=== PATIENT | male | born 1955 | race Caucasian/White ===

== ENCOUNTER 2016-11-02 10:42 | Emergency (ER) | payer MEDICARE ==
[2016-11-02 11:44] VITALS: BP 115/64
--- NOTE | 2016-11-02 12:23 | UC ---
Respiratory Complaint HPI - HPI Summary HPI Summary: The patient comes in today for: 1. Sinus pressure, bilateral otalgia: Onset: 1 week. Palliative/provocative: Nothing helps or makes it worse. Quality: Pressure. Region: Above and below the eyes. Severity: 8/10 though he appears more like 4/10 Time: Constant. Associated symptoms: Fevers: None. Rhinitis: Yellow. Cough: Productive of yellow material. Chest pain: None. Dyspnea/wheezing: None. * - History of Current Complaint Chief Complaint: UCRespiratory Stated Complaint: SINUS COMPLAINT Time Seen by Provider: 11/02/16 12:18 Hx Obtained From: Patient - Allergies/Home Medications Allergies/Adverse Reactions: Allergies Allergy/AdvReac Type Severity Reaction Status Date / Time Codeine Allergy adverse Verified 11/02/16 11:44 reaction Home Medications: Home Medications Lubiprostone (NF) [Amitiza (NF)] 8 mcg PO BID 11/02/16 [History Confirmed ] PMH/Surg Hx/FS Hx/Imm Hx Previously Healthy: No - Chronic low back pain. Endocrine History Of: Denies: Diabetes, Thyroid Disease, Hyperthyroidism, Hypothyroidism, Dyslipidemia Cardiovascular History Of: Denies: Cardiac Disorders, Hypertension, Pacemaker/ICD, Myocardial Infarction , Congestive Heart Failure, Atrial Fibrillation, Deep Vein Thrombosis, Bleeding Disorders Respiratory History Of: Reports: Asthma - He is not on any inhalers ("I can't afford them." Denies: COPD GI/ History Of: Denies: Gastroesophageal Reflux, Ulcer, Gastrointestinal Bleed, Gall Bladder Disease, Kidney Stones, Diverticulitis, Renal Disease, Urosepsis Neurological History Of: Denies: TIA, CVA, Dementia, Seizures, Migraine Psychological History Of: Denies: Anxiety, Depression, Bipolar Disorder, Schizophrenia, Post Traumatic Stress Disorder Cancer History Of: Denies: Lung Cancer, Colorectal Cancer, Breast Cancer, Prostate Cancer, Cervical Cancer Other History Of: Negative For: HIV, Hepatitis B, Hepatitis C, Anticoagulant Therapy - Surgical History Surgical History: Yes Surgery Procedure, Year, and Place: back surg 2006 - Family History Known Family History: Positive: Cardiac Disease, Hypertension, Diabetes Family History: NON CONTRIBUTORY - Social History Occupation: Unemployed Alcohol Use: None 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 Substance Use Type: None Smoking Status (MU): Heavy Every Day Tobacco Smoker Type: Cigarettes Amount Used/How Often: 1.5 ppd Length of Time of Smoking/Using Tobacco: started age 8 - Immunization History Most Recent Influenza Vaccination: none Review of Systems Constitutional: Negative Skin: Negative Eyes: Negative ENT: Nasal Discharge Respiratory: Cough Cardiovascular: Negative Gastrointestinal: Negative Genitourinary: Negative All Other Systems Reviewed And Are Negative: Yes Physical Exam Triage Information Reviewed: Yes Appearance: Well-Appearing, No Pain Distress, Well-Nourished Vital Signs: Initial Vital Signs Temp 99.0 F 11/02/16 11:41 Pulse 68 11/02/16 11:41 Resp 14 11/02/16 11:41 BP 115/64 11/02/16 11:41 Pulse Ox 98 11/02/16 11:41 Vital Signs Reviewed: Yes Eyes: Positive: Conjunctiva Clear. Negative: Discharge ENT: Positive: Hearing grossly normal, Other: - Positive sinus pressure (frontal , maxillary). Negative: Pharyngeal erythema, Nasal congestion, Nasal drainage, TM bulging, TM dull, TM red, Tonsillar swelling, Tonsillar exudate Dental: Negative: Gross Decay/Caries @, Dental Fracture @ Neck: Positive: Supple, Nontender, No Lymphadenopathy. Negative: Nuchal Rigidity Respiratory: Positive: Chest non-tender, No respiratory distress, No accessory muscle use, Wheezing - Few scattered wheezing. Good inspiration/expiration cycle.. Negative: Crackles, Rhonchi Cardiovascular: Positive: RRR, No Murmur Abdomen Description: Positive: Nontender, No Organomegaly, Soft. Negative: Distended, Guarding, Peritoneal Signs Musculoskeletal: Positive: Strength Intact, ROM Intact, No Edema Psychological: Positive: Normal Response To Family, Age Appropriate Behavior. Negative: Consolable Skin: Negative: rashes, breakdown UC Diagnostic Evaluation - Laboratory O2 Sat by Pulse Oximetry: 98 Respiratory Course/Dx - Differential Dx/Diagnosis Differential Diagnosis/HQI/PQRI: Bronchitis, Sinusitis Provider Diagnoses: Sinusitis Discharge - Discharge Plan Condition: Stable Disposition: HOME Patient Education Materials: Sinusitis (ED) Referrals: Lenny Beckett MD [Primary Care Provider] - 1 Week (Please see your primary care provider in about a week to see how well you are doing. If you get worse, please be seen sooner.)
== END 2016-11-02 12:38 | disposition home or self-care (01) ==
LOC: UCCORT 10:42
DX: J32.0 Chronic maxillary sinusitis (principal); H92.03 Otalgia, bilateral; J45.909 Unspecified asthma, uncomplicated; Z88.5 Allergy status to narcotic agent; F17.210 Nicotine dependence, cigarettes, uncomplicated
CPT/HCPCS: 99212; G0463

== ENCOUNTER 2017-01-07 17:54 | Emergency (ER) | payer MEDICARE ==
[2017-01-07 18:35] VITALS: BP 134/89
--- NOTE | 2017-01-07 19:08 | UC ---
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 center rep - History of Current Complaint Chief Complaint: UCUpperExtremity Stated Complaint: RIGHT ARM INJURY-FALL Time Seen by Provider: 01/07/17 19:01 Hx Obtained From: Patient ?: No Onset/Duration: Sudden Onset, Lasting Hours Severity Initially: Severe Severity Currently: Severe Location Of Pain: Is Discrete @ - mid right forearm Aggravating Factor(s): Movement, Lifting Alleviating Factor(s): Nothing Associated Signs And Symptoms: Positive: Swelling, Weakness - Allergies/Home Medications Allergies/Adverse Reactions: Allergies Allergy/AdvReac Type Severity Reaction Status Date / Time Codeine Allergy adverse Verified 01/07/17 18:36 reaction PMH/Surg Hx/FS Hx/Imm Hx Previously Healthy: Yes Endocrine History Of: Denies: Diabetes, Thyroid Disease, Hyperthyroidism, Hypothyroidism, Dyslipidemia Cardiovascular History Of: Denies: Cardiac Disorders, Hypertension, Pacemaker/ICD, Myocardial Infarction , Congestive Heart Failure, Atrial Fibrillation, Deep Vein Thrombosis, Bleeding Disorders Respiratory History Of: Reports: Asthma - He is not on any inhalers ("I can't afford them." Denies: COPD GI/ History Of: Denies: Gastroesophageal Reflux, Ulcer, Gastrointestinal Bleed, Gall Bladder Disease, Kidney Stones, Diverticulitis, Renal Disease, Urosepsis Neurological History Of: Denies: TIA, CVA, Dementia, Seizures, Migraine Psychological History Of: Denies: Anxiety, Depression, Bipolar Disorder, Schizophrenia, Post Traumatic Stress Disorder Cancer History Of: Denies: Lung Cancer, Colorectal Cancer, Breast Cancer, Prostate Cancer, Cervical Cancer Other History Of: Negative For: HIV, Hepatitis B, Hepatitis C, Anticoagulant Therapy - Surgical History Surgical History: Yes Surgery Procedure, Year, and Place: back surg 2006 - Family History Known Family History: Positive: Cardiac Disease, Hypertension, Diabetes Family History: NON CONTRIBUTORY - Social History Alcohol Use: None 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 Substance Use Type: None Smoking Status (MU): Heavy Every Day Tobacco Smoker Type: Cigarettes Amount Used/How Often: 1.5 ppd Length of Time of Smoking/Using Tobacco: started age 8 - Immunization History Most Recent Influenza Vaccination: none Review of Systems Constitutional: Negative Skin: Other - abraision Eyes: Negative ENT: Negative Respiratory: Negative Cardiovascular: Negative Gastrointestinal: Negative Genitourinary: Negative Motor: Negative Neurovascular: Negative Musculoskeletal: Decreased ROM, Edema Neurological: Negative Psychological: Negative All Other Systems Reviewed And Are Negative: Yes Physical Exam Triage Information Reviewed: Yes Appearance: Well-Nourished, Ill-Appearing, Pain Distress Vital Signs: Initial Vital Signs Temp 98.5 F 01/07/17 18:30 Pulse 74 01/07/17 18:30 Resp 16 01/07/17 18:30 BP 134/89 01/07/17 18:30 Pulse Ox 99 01/07/17 18:30 Vital Signs Reviewed: Yes Eye Exam: Normal Eyes: Positive: Conjunctiva Clear ENT Exam: Normal ENT: Positive: Hearing grossly normal, Pharynx normal, TMs normal Dental Exam: Normal Neck exam: Normal Neck: Positive: Supple, Nontender, No Lymphadenopathy Respiratory Exam: Normal Respiratory: Positive: Chest non-tender, Lungs clear, Normal breath sounds Cardiovascular Exam: Normal Cardiovascular: Positive: RRR, No Murmur, Pulses Normal Abdominal Exam: Normal Abdomen Description: Positive: Nontender, No Organomegaly, Soft Bowel Sounds: Positive: Present Musculoskeletal Exam: Normal Musculoskeletal: Positive: Strength Intact, ROM Intact, No Edema Neurological Exam: Normal Neurological: Positive: Alert, Muscle Tone Normal Psychological Exam: Normal Skin Exam: Normal Upper Extremity Course/Dx - Course Course Of Treatment: hx obtained, exam performed, meds reviewed, xray obtained. wound cleansed, bacitractin applied, talya wrap for swelling reduction - Differential Dx/Diagnosis Differential Diagnosis/HQI/PQRI: Contusion, Fracture (Closed), Strain, Sprain Provider Diagnoses: forearm contusion Discharge - Discharge Plan Condition: Stable Disposition: HOME Patient Education Materials: Contusion in Adults (ED) Additional Instructions: your arm is not broken, continue to ice and use talya wrap for swelling control.
--- NOTE | 2017-01-07 19:24 | RAD ---
INDICATION: Right forearm injury. TECHNIQUE: 2 views of the right forearm were obtained. FINDINGS: The bones are in normal alignment. No fracture is seen. IMPRESSION: NO EVIDENCE FOR FRACTURE.
== END 2017-01-07 19:40 | disposition home or self-care (01) ==
LOC: UCCORT 17:54
DX: S50.11XA Contusion of right forearm, initial encounter (principal); S50.811A Abrasion of right forearm, initial encounter; W19.XXXA Unspecified fall, initial encounter; Y93.9 Activity, unspecified; Y92.9 Unspecified place or not applicable; J45.909 Unspecified asthma, uncomplicated; Z88.5 Allergy status to narcotic agent; F17.210 Nicotine dependence, cigarettes, uncomplicated
CPT/HCPCS: 99212; G0463

== ENCOUNTER 2017-10-25 18:07 | Emergency (ER) | payer BC, MEDICARE ==
[2017-10-25 18:27] VITALS: BP 124/64
--- NOTE | 2017-10-25 19:03 | RAD ---
Indication: Cough, smoker. She by a horse. 3 views of the right ribs as well as dual energy PA view of the chest demonstrates no fracture of the right ribs. No pneumothorax is noted. No mediastinal shift is noted. Heart is of normal size and configuration. Lung crystal demonstrate no pleural fluid, pneumonia or pneumothorax. Calcified granuloma in the right midlung zone is noted. IMPRESSION: No rib fractures are noted. No pneumothorax is noted.
--- NOTE | 2017-10-25 19:55 | UC ---
Truncal Trauma HPI - HPI Summary HPI Summary: Pt c/o of being kicked by horse on 10/24/17 in right lower lateral ribs. Pt denies hematuria, bruising, or swelling to area. - History Of Current Complaint Chief Complaint: UCChestPain Stated Complaint: KICKED BY HORSE RT SIDE RIBS Time Seen by Provider: 10/25/17 19:36 Hx Obtained From: Patient Onset/Duration: Sudden Onset, Still Present Onset Of Pain: Immediate Severity Initially: Moderate Severity Currently: Moderate Pain Intensity: 10 Mechanism Of Injury: Direct Blow - horse kick Aggravating Factor(s): Movement, Deep Breathing, Cough Alleviating factor(s): Rest Associated Signs And Symptoms: Positive: Negative - Allergies/Home Medications Allergies/Adverse Reactions: Allergies Allergy/AdvReac Type Severity Reaction Status Date / Time Codeine Allergy adverse Verified 10/25/17 18:22 reaction Dust Mite Extract Allergy "I choke Verified 10/25/17 18:22 right up." Molds & Smuts Allergy "I choke Verified 10/25/17 18:22 right up." Home Medications: Home Medications Gabapentin CAP(*) [Neurontin 300 CAP(*)] 600 mg PO TID 10/25/17 [History Confirmed 10/25/17] Morphine TAB Extended Rel(*) [Ms Contin(*)] 15 mg PO BID 10/25/17 [History Confirmed 10/25/17] oxyCODONE ORAL.SOLN* [Oxycodone ORAL.SOLN 5 mg/5 ml *] 0.25 - 0.5 ml PO Q6H PRN 10/25/17 [History Confirmed 10/25/17] PMH/Surg Hx/FS Hx/Imm Hx Previously Healthy: Yes Other History Of: Negative For: HIV, Hepatitis B, Hepatitis C, Anticoagulant Therapy - Surgical History Surgical History: Yes Surgery Procedure, Year, and Place: L3L4L5 Fusion (Rods and Screws), 2007, [place] - Family History Known Family History: Positive: Cardiac Disease, Hypertension, Diabetes Family History: NON CONTRIBUTORY - Social History Occupation: Employed Full-time Lives: With Family Alcohol Use: None 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 Substance Use Type: None Smoking Status (MU): Heavy Every Day Tobacco Smoker Type: Cigarettes Amount Used/How Often: 1 PPD Length of Time of Smoking/Using Tobacco: Since Age 8 Have You Smoked in the Last Year: Yes - Immunization History Most Recent Influenza Vaccination: none Vaccination Up to Date: No Review of Systems Constitutional: Negative Skin: Negative Eyes: Negative ENT: Negative Respiratory: Negative Cardiovascular: Negative Gastrointestinal: Negative Genitourinary: Negative Motor: Decreased ROM - right side chest/ribs Neurovascular: Negative Musculoskeletal: Arthralgia, Decreased ROM - right robinson eribs/chest., Myalgia Neurological: Negative Psychological: Negative Is Patient Immunocompromised?: No All Other Systems Reviewed And Are Negative: Yes Physical Exam Triage Information Reviewed: Yes Appearance: Pain Distress, Thin Vital Signs: Initial Vital Signs Temp 97.6 F 10/25/17 18:18 Pulse 70 10/25/17 18:18 Resp 20 10/25/17 18:18 BP 124/64 10/25/17 18:18 Pulse Ox 99 10/25/17 18:18 Vital Signs Reviewed: Yes Eye Exam: Normal ENT Exam: Normal Neck exam: Normal Respiratory Exam: Normal Cardiovascular Exam: Normal Musculoskeletal Exam: Other Musculoskeletal: Positive: ROM Limited @ - right side rib pain, reproducible with palaption. no organmegaly, no bruising noted, Neurological Exam: Normal Psychological Exam: Normal Skin Exam: Normal Diagnostics - Radiology No standard instances Radiology Interpretation Completed By: Radiologist - 3 views of the right ribs as well as dual energy PA view of the chest demonstrates no fracture of the right ribs. No pneumothorax is noted. No mediastinal shift is noted. Heart is of normal size and configuration. Lung crystal demonstrate no pleural fluid, pneumonia or pneumothorax. Calcified granuloma in the right midlung zone is noted. IMPRESSION: No rib fractures are noted. No pneumothorax is noted. Truncal Trauma Course/Dx - Differential Dx/Diagnosis Differential Diagnosis/HQI/PQRI: Chest Wall Contusion, Rib Fracture Provider Diagnoses: right rib contusion Discharge - Discharge Plan Condition: Stable Disposition: HOME Patient Education Materials: Rib Contusion (ED) Referrals: Lenny Beckett MD [Primary Care Provider] - If Needed Additional Instructions: Please follow up with your PCP or return to clinic as needed.
== END 2017-10-25 20:09 | disposition home or self-care (01) ==
LOC: UCCORT 18:07
DX: S20.211A Contusion of right front wall of thorax, initial encounter (principal); W55.12XA Struck by horse, initial encounter; Y92.9 Unspecified place or not applicable; F17.210 Nicotine dependence, cigarettes, uncomplicated
CPT/HCPCS: 81003; 99212; G0463

== ENCOUNTER 2018-04-09 19:15 | Emergency (ER) | payer MEDICARE ==
[2018-04-09 19:31] VITALS: BP 129/65
--- NOTE | 2018-04-09 20:12 | RAD ---
INDICATION: LEFT elbow pain and swelling over the olecranon process since last night. COMPARISON: No relevant prior exams available on the [facility] PACS for comparison. TECHNIQUE: AP, lateral, and oblique views LEFT elbow. REPORT: Soft tissue swelling over the olecranon process. No conspicuous foreign body or subcutaneous emphysema. Negative for joint effusion, fracture, or malalignment. Mild osteophytosis at the proximal radial ulnar articulation. IMPRESSION: #. Correlate for potential dorsal cellulitis or olecranon bursitis.
--- NOTE | 2018-04-09 20:20 | UC ---
Upper Extremity HPI - History of Current Complaint Chief Complaint: UCUpperExtremity Stated Complaint: ELBOW (L) CONCERN Time Seen by Provider: 04/09/18 19:43 Onset/Duration: Lasting Days Severity Initially: Moderate Severity Currently: Moderate Pain Intensity: 8 Aggravating Factor(s): Movement Alleviating Factor(s): Nothing - Allergies/Home Medications Allergies/Adverse Reactions: Allergies Allergy/AdvReac Type Severity Reaction Status Date / Time codeine Allergy Unknown Verified 04/09/18 19:34 Reaction Details mold Allergy Difficulty Verified 04/09/18 19:34 Breathing/Wheezing DUST MITES Allergy Difficulty Uncoded 04/09/18 19:34 Breathing/Wheezing Home Medications: Home Medications Duloxetine HCl [Cymbalta] 20 mg PO BID 04/09/18 [History Confirmed 04/09/18] Piroxicam [Feldene] 20 mg PO DAILY 04/09/18 [History Confirmed 04/09/18] PMH/Surg Hx/FS Hx/Imm Hx Previously Healthy: Yes Other History Of: Negative For: HIV, Hepatitis B, Hepatitis C, Anticoagulant Therapy - Surgical History Surgical History: Yes Surgery Procedure, Year, and Place: L3L4L5 Fusion (Rods and Screws), 2007, [place]. 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 Substance Use Type: None Smoking Status (MU): Heavy Every Day Tobacco Smoker Type: Cigarettes Amount Used/How Often: 1 PPD Length of Time of Smoking/Using Tobacco: Since Age 8 Have You Smoked in the Last Year: Yes - Immunization History Most Recent Influenza Vaccination: none Vaccination Up to Date: No Review of Systems Constitutional: Negative Skin: Negative Eyes: Negative ENT: Negative Respiratory: Negative Cardiovascular: Negative Gastrointestinal: Negative Genitourinary: Negative Motor: Negative Neurovascular: Negative Musculoskeletal: Other: - tenderness left elbow All Other Systems Reviewed And Are Negative: Yes Physical Exam Triage Information Reviewed: Yes Appearance: Thin Vital Signs: Initial Vital Signs Temp 36.9 C 04/09/18 19:26 Pulse 75 04/09/18 19:26 Resp 20 04/09/18 19:26 BP 129/65 04/09/18 19:26 Pulse Ox 97 04/09/18 19:26 Vital Signs Reviewed: Yes Eye Exam: Normal Eyes: Positive: Conjunctiva Clear ENT Exam: Normal ENT: Positive: Normal ENT inspection Dental Exam: Normal Neck exam: Normal Respiratory Exam: Normal Cardiovascular Exam: Normal Abdominal Exam: Normal Musculoskeletal Exam: Normal Neurological Exam: Normal Psychological Exam: Normal Skin Exam: Normal Upper Extremity Course/Dx - Course Course Of Treatment: left olecranon bursa aspirated 8cc serosanguinous fluid - Differential Dx/Diagnosis Provider Diagnoses: olecranon bursitis Discharge - Sign-Out/Discharge Documenting (check all that apply): Patient Departure - Discharge Plan Condition: Good Disposition: HOME Patient Education Materials: Elbow Bursitis (ED) Referrals: Lenny Beckett MD [Primary Care Provider] - - Billing Disposition and Condition Condition: GOOD Disposition: Home
--- NOTE | 2018-04-11 08:20 | UC ---
- Progress Note Progress Note: RN to call pt. Encourage f/u with PCP - call today to schedule appt for early next week - for recheck and for results review. Thus far noteworthy + Blood in joint, but does not appear acutely inflammatory, nor malignant (as noted on lab report). Fluid culture pending. Discharge - Sign-Out/Discharge Documenting (check all that apply): Post-Discharge Follow Up - Discharge Plan Condition: Good Disposition: HOME Patient Education Materials: Elbow Bursitis (ED) Referrals: Lenny Beckett MD [Primary Care Provider] - - Billing Disposition and Condition Condition: GOOD Disposition: Home
== END 2018-04-09 20:32 | disposition home or self-care (01) ==
LOC: UCCORT 19:15
DX: M70.22 Olecranon bursitis, left elbow (principal); Y93.9 Activity, unspecified; Z88.5 Allergy status to narcotic agent; Z82.49 Family history of ischemic heart disease and other diseases of the circulatory system; Z83.3 Family history of diabetes mellitus; F17.210 Nicotine dependence, cigarettes, uncomplicated
CPT/HCPCS: 20605; 36415; 82945; 84157; 87070; 87205; 87640; 87641; 89051; 99211; G0463

== ENCOUNTER 2018-04-15 20:52 | Emergency (ER) | payer MEDICARE ==
[2018-04-15 21:19] VITALS: BP 118/71
--- NOTE | 2018-04-15 21:23 | UC ---
Elbow Pain - HPI Summary HPI Summary: Patient is complaining of swelling over his left elbow. He states that he was seen here on the of this month and had the fluid drained and sent off. He states he was also given an steve wrap; however, about 2 days afterwards he noted that the fluid reaccumulated. He denies any fever or chills. He denies any history of injury. He denies any pain in the joint and has no other complaints. - History of Current Complaint Stated Complaint: LEFT ELBOW PAIN AND SWELLING Time Seen by Provider: 04/15/18 21:07 Hx Obtained From: Patient Aggravating Factor(s): Nothing Alleviating Factor(s): Nothing Associated Signs And Symptoms: Positive: Swelling. Negative: Redness, Fever, Numbness/Tingling - Allergies/Home Medications Allergies/Adverse Reactions: Allergies Allergy/AdvReac Type Severity Reaction Status Date / Time codeine Allergy Unknown Verified 04/09/18 19:34 Reaction Details mold Allergy Difficulty Verified 04/09/18 19:34 Breathing/Wheezing DUST MITES Allergy Difficulty Uncoded 04/09/18 19:34 Breathing/Wheezing PMH/Surg Hx/FS Hx/Imm Hx - Additional Past Medical History Additional PMH: chronic back pain Other History Of: Negative For: HIV, Hepatitis B, Hepatitis C, Anticoagulant Therapy - Surgical History Surgical History: Yes Surgery Procedure, Year, and Place: L3L4L5 Fusion (Rods and Screws), 2007, [place]. 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 Substance Use Type: None Smoking Status (MU): Heavy Every Day Tobacco Smoker Type: Cigarettes Amount Used/How Often: 1 PPD Length of Time of Smoking/Using Tobacco: Since Age 8 Have You Smoked in the Last Year: Yes - Immunization History Most Recent Influenza Vaccination: none Vaccination Up to Date: No Review of Systems Constitutional: Negative Skin: Negative Eyes: Negative ENT: Negative Respiratory: Negative Cardiovascular: Negative Gastrointestinal: Negative Genitourinary: Negative Motor: Negative Neurovascular: Negative Musculoskeletal: Other: - swelling over L elbow Neurological: Negative Psychological: Negative Is Patient Immunocompromised?: No All Other Systems Reviewed And Are Negative: Yes Physical Exam Triage Information Reviewed: Yes Appearance: Well-Appearing, Thin Vital Signs Reviewed: Yes Eyes: Positive: Conjunctiva Clear ENT: Positive: Normal ENT inspection Neck: Positive: Supple, Nontender, No Lymphadenopathy Respiratory: Positive: Lungs clear, Normal breath sounds Cardiovascular: Positive: RRR, No Murmur Abdomen Description: Positive: Nontender, No Organomegaly, Soft Bowel Sounds: Positive: Present Musculoskeletal: Positive: Other: - LUE: Shoulders without deformity or tenderness. The olecranon bursa is swollen but has no warmth or erythema. There is no associated bony tenderness in the elbow has full painless range of motion. The forearm, wrist and hand are atraumatic. The hand has full sensorivascular motor function. Neurological: Positive: Alert Psychological: Positive: Age Appropriate Behavior Skin Exam: Normal Elbow Pain Course/Dx - Course Course Of Treatment: results of bursa fluid from 04/09/18 reviewed. no growth and unremarkable. Patient does not wish to wear an Steve. Since the fluid reaccumulated only 2 days after being aspirated, and going to refer the patient to orthopedics. Patient advised to call in the a.m. and take next available appointment. - Differential Dx/Diagnosis Provider Diagnoses: Recurrent Bursitis L elbow Discharge - Sign-Out/Discharge Documenting (check all that apply): Patient Departure - Discharge Plan Condition: Stable Disposition: HOME Patient Education Materials: Elbow Bursitis (ED) Referrals: Lenny Beckett MD [Primary Care Provider] - If Needed Jerry Gamboa MD [Medical Doctor] - 1 Day - Billing Disposition and Condition Condition: STABLE Disposition: Home
== END 2018-04-15 21:34 | disposition home or self-care (01) ==
LOC: UCCORT 20:52
DX: M71.9 Bursopathy, unspecified (principal); Z88.5 Allergy status to narcotic agent; F17.210 Nicotine dependence, cigarettes, uncomplicated
CPT/HCPCS: 99211; G0463

== ENCOUNTER 2018-05-26 07:03 | Day surgery (SDC) | payer MEDICARE ==
[~2018-05-26 07:03] MED LIST: Buffered Lidocaine 0.9% SYRIN* 5 ML/SYR SYRINGE INTRADERM ONE; Sodium Citrate/Citric Acid* 15 ML UDC PO ONE
[2018-05-26] MEDS ORDERED: Sodium Citrate/Citric Acid* 15 ML UDC ONE (07:07)
[2018-05-26] MEDS ORDERED: ceFAZolin 2 GM PREMIX (*) 2 GM/50 ML BAG IVPB ONE (07:08)
[2018-05-26] MEDS ORDERED: Lidocaine 2% PF * 5 ML VIAL ONE (10:03)
[2018-05-26] MEDS ORDERED: Succinylcholine* 20 MG/ML 10 ML VIAL ONE (10:03)
[2018-05-26] MEDS ORDERED: Propofol* 10 MG/ML 20 ML BTL IV PUSH ONE (10:03)
[2018-05-26] MEDS ORDERED: fentaNYL* 50 MCG/ML 2 ML VIAL (100 MCG VIAL) ONE (10:47)
[2018-05-26] MEDS ORDERED: Ropivacaine* 2 MG/ML 20 ML VIAL (0.2%) ONE (11:16)
[2018-05-26] MEDS ORDERED: fentaNYL* 50 MCG/ML 2 ML VIAL (100 MCG VIAL) IV PRN (12:23)
[2018-05-26] MEDS ORDERED: Naloxone* 0.4 MG/ML 1 ML VIAL IV PRN (12:23)
[2018-05-26] MEDS ORDERED: DiMENhydriNATE IV* 50 MG/ML VIAL IV PUSH PRN (12:23)
[2018-05-26 13:02] VITALS: BP 155/85
--- NOTE | 2018-05-26 16:50 | OP ---
DATE OF OPERATION: 05/26/18 - [facility] DATE OF : 55 SURGEON: Russell Huerta MD. ASSISTANTS: EMILY Bose and Leela Fragoso. ANESTHESIOLOGIST: Dr. Rodarte. ANESTHESIA: General. PRE-OP DIAGNOSIS: Left olecranon bursitis. POST-OP DIAGNOSIS: Left olecranon bursitis. OPERATIVE PROCEDURE: Left olecranon bursectomy. 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 It is very painful. X-rays were negative. We talked about risks and benefits including the risk of neurovascular injury, risk of hematoma, and wound problems. He wants to proceed. ESTIMATED BLOOD LOSS: 2 mL. COMPLICATIONS: None. FINDINGS: As expected. DESCRIPTION OF PROCEDURE: Alfonzo was seen in the preoperative holding area. The correct side, site, and procedure were identified. We came back to the operating room where he was positioned in the lateral decubitus position. The arm was prepped and draped in the usual fashion. A time-out was performed. The arm was exsanguinated with the Esmarch and tourniquet inflated to 250 mmHg. I made a posterior longitudinal midline incision. I the bursa from the dermis. The bursa was then excised in its entirety circumferentially raising off of the triceps fascia proximally and the periosteum distally. There was little bit of a bone spur on the dorsum of the olecranon so I excised out with a rongeur. Once I had removed all of the bursa and that bone spur and everything was looking good. I went ahead and closed the wound. I had noted that the ulnar nerve was protected throughout the entirety of the case. The wound was closed with nylon. The wound was infiltrated with 0.25% Marcaine. A well-padded long arm splint was applied to keep some compression on the wound. Tourniquet was deflated. The hand pinked up immediately. He was taken to the recovery room in stable condition. [id number]/CPS #: [id number] MTDD
== END 2018-05-26 13:22 | disposition home or self-care (01) ==
LOC: OR 07:03
PROVIDERS: ATTEND Orthopaedic Surgery Hand Surgery
DX: M70.22 Olecranon bursitis, left elbow (principal); Z72.0 Tobacco use; F41.9 Anxiety disorder, unspecified; L40.9 Psoriasis, unspecified; G89.29 Other chronic pain; Z79.891 Long term (current) use of opiate analgesic
CPT/HCPCS: 88304; A9270-GY; J0330; J0690; J2704; J2795; J3010

== ENCOUNTER 2018-06-08 10:49 | Emergency (ER) | payer MEDICARE ==
--- OUTSIDE RECORDS SUMMARY | 2018-06-08 11:34 | XMS REPORT ---
:1955 External Reference #:[id number] Author Organization [facility] Address [address] [place] [address] Phone [phone] Care Team Providers Name Role Phone Lenny Beckett MD Primary Care Physician Unavailable Payers Type Date Identification Numbers Payment Provider Subscriber Health Maintenance Policy Number: Medicare Blue Ppo [employer] Organization (HMO) [id number] PayID: [id number] [address] [address] [place] [address] Problems Date Description Provider Status Onset: 07/10/2012 Psoriasis Jaleel Meza M.D. Active Onset: 07/10/2012 Chronic pain syndrome Jaleel Meza M.D. Active Family History Date Family Member(s) Problem(s) Comments General Cancer General Diabetes General Heart Disease Social History Type Date Description Comments Marital Status Lives With Alone Occupation Disabled Cigarette Use current cigarette smoker ETOH Use Denies alcohol use Recreational Drug Use Denies Drug Use Smoking Heavy tobacco smoker (more than 10 cigarettes/day) Daily Caffeine Consumes on average 5-10 cups of regular coffee per day Exercise Type/Frequency Exercises regularly Allergies, Adverse Reactions, Alerts Date Description Reaction Status Severity Comments 06/06/2018 Codeine active No 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 Lidoderm Active Patches 5% 30uni one patch Unknown /0000 ts daily on for 12 h and 12hrs off Gabapentin 00/00 Active Tablets 600mg 90tab 1 po q 8 Unknown /0000 s hrs Cymbalta Active Caps DR 60mg 30cap 1 po bid Unknown /0000 Part s Tizanidine HCL Active Tablets 4mg 180ta 10/03 to 10/01 Unknown /0000 bs tab tid Piroxicam Active Capsules 20mg 30cap one Unknown 0000 s capsule po daily with food Avinza Active Caps ER 45mg 30cap po qam Unknown /0000 24HR s Oxycodone HCL Active Concentrate 20mg/ml 60ml 0.25 - 0.5 Unknown /0000 ml q 6 - 8 hrs Morphine Sulfate Active Tablets ER 15mg 1 tab by Chava, ER / mouth Primo, DO daily Clobetasol 07/31 Hx Cream 0.05% 30gm use 696.1 Zsofia Propionate sparingly Derrick, - on 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 Hydroxychloroquin 07/10 Hx Tablets 200mg 60tab 1 po bid 696.1 Jaleel e s Endo, - M.D. 07/31 Prednisone 05/29 Hx Tablets 5mg 70tab 4 qd x 1 s week, 3 qd Endo, - x 1 week, M.D. 07/31 2 qd x week, 1 qd x 1 week Prednisone 05/01 Hx Tablets 5mg 70tab 4 qd x 1 s week, 3 qd Endo, - x 1 week, M.D. 05/29 2 qd x week, 1 qd x 1 week Flector Hx Patches 1.3% 60uni topical Unknown ts twice a - day 04/11 Immunizations CPT Code Status Date Vaccine Lot # [id number] Given 07/31/2013 Flu Vaccine Split Virus Preservative Free For 1345 4p Indiv 3Yr Older Vital Signs Date Vital Result Comment 06/06/2018 Height 67.5 inches 5'7.50" Heart Rate 60 /min BP Systolic 106 mmHg BP Diastolic 60 mmHg Respiratory Rate 16 /min Pain Level 0 05/16/2018 Height 67.5 inches 5'7.50" Weight 155.00 lb BP Systolic Sitting 126 mmHg BP Diastolic Sitting 72 mmHg Respiratory Rate 17 /min Pain Level 10 BMI (Body Mass Index) 23.9 kg/m2 05/02/2018 Height 67.5 inches 5'7.50" Weight 155.00 lb Heart Rate 54 /min BP Systolic Sitting 110 mmHg BP Diastolic Sitting 56 mmHg Respiratory Rate 20 /min Pain Level 9 BMI (Body Mass Index) 23.9 kg/m2 04/17/2018 Height 67.5 inches 5'7.50" Weight 155.00 lb BP Systolic Sitting 124 mmHg BP Diastolic Sitting 68 mmHg Respiratory Rate 17 /min Pain Level 10 BMI (Body Mass Index) 23.9 kg/m2 07/31/2013 Height 64 inches 5'4" Weight 157.50 lb Heart Rate 74 /min BP Systolic Sitting 118 mmHg BP Diastolic Sitting 60 mmHg BMI (Body Mass Index) 27.0 kg/m2 07/10/2012 Height 64 inches 5'4" Weight 160.00 lb Heart Rate 78 /min BP Systolic Sitting 131 mmHg BP Diastolic Sitting 70 mmHg BMI (Body Mass Index) 27.5 kg/m2 05/29/2012 Height 64 inches 5'4" Heart Rate 82 /min BP Systolic Sitting 134 mmHg BP Diastolic Sitting 74 mmHg 05/01/2011 Height 64 inches 5'4" Weight 154.00 lb Heart Rate 78 /min BP Systolic 110 mmHg BP Diastolic 70 mmHg BMI (Body Mass Index) 26.4 kg/m2 Results Test Date Test Result H/L Range Note Laboratory test 05/26/2018 Surgical Pathology SEE RESULT BELOW 1 finding CMP Panel 06/19/2013 Sodium 138 mmol/L 133-145 Potassium 3.9 mmol/L 3.5-5.0 Chloride 107 mmol/L 101-111 Co2 Carbon Dioxide 28.0 mmol/L 22-32 Anion Gap 3.0 mmol/L 2-11 Glucose 101 mg/dL High 70-100 Blood Urea Nitrogen 16 mg/dL 6-24 Creatinine 0.70 mg/dL 0.50-1.40 BUN/Creatinine Ratio 22.9 High 8-20 Calcium 9.4 mg/dL 8.1-9.9 Total Protein 5.9 g/dL Low 6.2-8.1 Albumin 4.0 g/dL 3.6-5.4 Globulin 1.9 g/dL Low 2-4 Albumin/Globulin Ratio 2.1 1-3 Total Bilirubin 0.5 mg/dL 0.4-1.5 Alkaline Phosphatase 68 U/L 30-110 Alt 21 U/L 14-54 Ast 21 U/L 12-42 Egfr Non- 116.2 >60 Egfr 149.5 >60 2 CBC W/Auto Diff 06/19/2013 White Blood Count 8.2 10^3/uL 4.8-10.8 Red Blood Count 4.20 10^6/uL 4.0-5.4 Hemoglobin 13.7 g/dL Low 14.0-18.0 Hematocrit 40 % Low 42-52 Mean Corpuscular Volume 96 fL High 80-94 Mean Corpuscular Hemoglobin 33 pg High 27-31 Mean Corpuscular HGB Conc 34 g/dL 31-36 Red Cell Distribution Width 14 % 10.5-15 Platelet Count 277 10^3/uL 150-450 Mean Platelet Volume 8 um3 7.4-10.4 Abs Neutrophils 4.9 10^3/uL 1.5-7.7 Abs Lymphocytes 2.4 10^3/uL 1.0-4.8 Abs Monocytes 0.6 10^3/uL 0-0.8 Abs Eosinophils 0.3 10^3/uL 0-0.6 Abs Basophils 0.1 10^3/uL 0-0.2 Abs Nucleated RBC 0 10^3/uL Granulocyte % 59.8 % 38-83 Lymphocyte % 28.8 % 25-47 Monocyte % 7.4 % 1-9 Eosinophil % 3.3 % 0-6 Basophil % 0.7 % 0-2 Nucleated Red Blood Cells % 0 Laboratory test finding 06/19/2013 Erythrocyte Sed Rate 10 mm/Hr 0-20 3 C Reactive Protein < 0.5 mg/dL Less than 0.5 4 CBC With Manual Diff 05/29/2012 White Blood Count 9.0 CUMM 4.8-10.8 Red Cell Count 4.57 CUMM Low 4.6-6.2 Hemoglobin 14.9 g/dL 14.0-18.0 Hematocrit 44 % 42-52 Mean Corpuscular Volume 95 um3 High 80-94 Mean Corpuscular Hemoglob 33 pg High 27-31 Mean Corpuscular HGB Cone 34 g/dL 32-36 Redcell Distribution WDTH 14 % 10.5-15 Platelet Count 268 CUMM 150-450 Mean Platelet Volume 8.3 um3 7.4-10.4 Absolute Neutrophil Count 5.1 1.5-7.7 Polysegmented Neutrophil 70 % 38-83 Band Neutrophil 3 % 0-8 Lymphocyte 18 % Low 25-47 Monocyte 4 % 0-13 Eosinophil 5 % 0-6 RBC Morphology NORMAL Laboratory test finding 05/29/2012 Erythrocyte Sed Rate 9 MM/HR 0-20 C Reactive Protein < 0.5 mg/dL Less Than 0.5 Rheumatoid Factor < 15 IU/mL <15 5 Cyclic Citrullinated Pep Igg <15.6 U () 6 Comp Metabolic Panel 05/29/2012 Sodium 134 mmol/L Low 135-145 Potassium 4.1 mmol/L 3.5-5.0 Chloride 99 mmol/L Low 101-111 Co2 (Carbon Dioxide) 29.0 mmol/L 22-32 Anion Gap 6.0 mmol/L 2-11 7 Glucose 91 mg/dL 70-100 BUN 10 mg/dL 6-24 Creatinine 0.9 mg/dL 0.50-1.40 One Over Creatinine 1.11 BUN/Creatinine Ratio 11.1 8-20 Calcium 10.0 mg/dL High 8.1-9.9 Total Protein 6.4 GM/DL 6.2-8.1 Albumin 4.4 GM/DL 3.6-5.4 Globulin 2.0 GM/DL 2-4 Albumin/Globulin Ratio 2.2 1-3 Bilirubin Total 0.5 mg/dL 0.4-1.5 8 Alkaline Phosphatase 68 U/L 39-117 Alt (SGPT) 18 U/L 17-63 Ast (Sgot) 23 U/L 12-42 eGFR Non- 87.3 > 60 eGFR 112.3 > 60 9 1 SEE RESULT BELOW Name: SAM JOHNSON SR : [address]: Russell Huerta MD Acct: [id number] Unit: [id number] AGE: 62 Location: OR Re05/26/18 SEX: M Status: DEP [facility] SPEC: [id number] CATA: 05/26/18-1128 [facility] DR: Russell Huerta MD REQ: [id number] RECD: 05/26/18125 STATUS: SOUT _ ORDERED: LEVEL 3 FINAL DIAGNOSIS Soft tissue, left colonic and bursa, resection: -- Hypertrophic synovial tissue with chronic inflammation, fibrosis and marked neovascularization. PRE-OPERATIVE DIAGNOSIS Left olecranon bursitis GROSS DESCRIPTION The specimen is received in formalin labeled, Left Olecranon Bursa, and consists of a 6.9 x 5.4 x 1.0 cm aggregate of bourne-pink irregular to saccular rubbery fibrous tissue fragments and yellow fat. Auto Adjudication Specialist sections, one cassette. Signed by and Reported on: Zurdo Anderson MD 1028 END OF REPORT DEPARTMENT OF PATHOLOGY, [address] [place] [address] Zurdo Anderson M.D. Director [facility] # [id number] 2 Because ethnic data is not always readily available, this report includes an eGFR for both -Americans and non- Americans. The National Kidney Disease Education Program (NKDEP) does not endorse the use of the MDRD equation for patients that are not between the ages of 18 and 70, are , have extremes of body size, muscle mass, or nutritional status, or are non- or non-. According to the National Kidney Foundation, irrespective of diagnosis, the stage of the disease is based on the level of kidney function: Stage Description GFR(mL/min/1.73 m(2)) 1 Kidney damage with normal or decreased GFR 90 2 Kidney damage with mild decrease in GFR 60-89 3 Moderate decrease in GFR 30-59 4 Severe decrease in GFR 15-29 5 Kidney failure <15 (or dialysis) 3 @ Ordering doctor for CBCM edited from [id number] to [id number] @ by [id number] at 06/19/13 1202 @ Ordering doctor for SED edited from [id number] to [id number] @ by [id number] at 06/19/13 1202 @ Submitting doctor edited from [id number] to [id number] @ by [id number] at 06/19/13 1202 4 @ Ordering doctor for CMP edited from [id number] to [id number] @ by [email or web address] at 06/19/13 1202 @ Ordering doctor for CRP edited from [id number] to [id number] @ by [id number] at 06/19/13 1202 @ Submitting doctor edited from [id number] to [id number] @ by [id number] at 06/19/13 1202 5 Test Performed by: [place] [address] Lumber Piler Operator: Krishna Moura III, M.D. 6 -- REFERENCE VALUE -- <20.0 (Negative) Test Performed by: [place] [address] Lumber Piler Operator: Krishna Moura III, M.D. 7 Anion gap measurement may be of limited value in the presence of any alkalosis, especially in a combined acid base disorder. . 8 A metabolite of Naproxen, O-desmethylnaproxen, has been shown to interfere with the Jendrdeborahik-Heeney method for measuring total bilirubin. Samples from patients who have taken Naproxen have shown spurious elevation in total bilirubin levels. 9 Because ethnic data is not always readily available, this report includes an eGFR for both -Americans and non- Americans. The National Kidney Disease Education Program (NKDEP) does not endorse the use of the MDRD equation for patients that are not between the ages of 18 and 70, are , have extremes of body size, muscle mass, or nutritional status, or are non- or non-. According to the National Kidney Foundation, irrespective of diagnosis, the stage of the disease is based on the level of kidney function: Stage Description GFR(mL/min/1.73 m(2)) 1 Kidney damage with normal or decreased GFR 90 2 Kidney damage with mild decrease in GFR 60-89 3 Moderate decrease in GFR 30-59 4 Severe decrease in GFR 15-29 5 Kidney failure <15 (or dialysis) Procedures Date CPT Code Description Status 05/26/2018 53601 Excision, Olecranon Bursa Completed 05/26/2018 86418 Excision, Olecranon Bursa Completed 04/17/2018 04611 Long Arm Splint Application Completed 04/17/2018 49101 Inject/Drain Joint/Bursa Intermediate W/O US Completed Encounters Type Date Location Provider CPT E/M Dx Office Visit 05/16/2018 [facility] [place] [address] M70.22 9:30a [facility] Office Visit 05/02/2018 [facility] [place] [address] M70.22 11:15a [facility] Office Visit 04/17/2018 [facility] [place] [address] M70.22 9:00a [facility] Office Visit 07/31/2013 Rhe[facility]ology Services ISAAC John [address] 338.4 11:00a Of [facility] 696.1 724.02 719.49 V04.81 Office Visit 07/10/2012 1:00p [facility] Services Jaleel Meza M.D. 00163 338.4 Of [facility] 696.1 Office Visit 05/29/2012 2:20p [facility] Jaleel Meza M.D. 15973 696.1 Of [facility] 724.02 719.49 Office Visit 05/01/2011 2:40p [facility] Jaleel Meza [address]3787 719.49 Of [facility] 696.1 Plan of Care Future Appointment(s):06/13/2018 8:45 am - Jerry Gamboa MD at [facility]
--- OUTSIDE RECORDS SUMMARY | 2018-06-08 11:35 | XMS REPORT ---
:1955 External Reference #:[id number] Author Organization [facility] Address [address] [place] [address] [place] [address] Phone [phone] Care Team Providers Name Role Phone Lenny Beckett MD Primary Care Physician Unavailable Payers Type Date Identification Numbers Payment Provider Subscriber Health Maintenance Policy Number: Medicare Blue Ppo [employer] Organization (HMO) [id number] PayID: [id number] [address] [address] [place] [address] Problems Date Description Provider Status Onset: 07/10/2012 [...] Alerts Date Description Reaction Status Severity Comments 05/01/2011 NKDA active Medications Medication Date Status Form Strength Qnty SIG Indications Ordering Provider Adrian 07/31 Active Gel 1% 1tube apply to 338.4 Zsofi /2012 s affected 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, 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, 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 Lidoderm Active Patches 5% 30uni one patch Unknown /0000 ts daily on for 12 h Gabapentin 00/00 Active Tablets 600mg 90tab 1 po q 8 Unknown /0000 s hrs Cymbalta Active Caps DR 60mg 30cap 1 po bid Unknown /0000 Part s Tizanidine HCL Active Tablets 4mg 180ta 10/03 to 10/01 Unknown /0000 bs tab tid Piroxicam Active Capsules 20mg 30cap one Unknown s capsule po daily with food Avinza Active Caps ER 45mg 30cap po qam 24HR s Oxycodone HCL Active Concentrate 20mg/ml 60ml 0.25 - 0.5 Unknown ml q 6 - 8 hrs Morphine Sulfate Active Tablets ER 15mg daily Larsen, ER Primo, DO Clobetasol 07/31 Hx Cream 0.05% 30gm use 696.1 Zsofia Propionate sparingly 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, - 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 affected areas twice daily for 2 [...] week Flector Hx Patches 1.3% 60uni topical ts twice a - day 04/11 Immunizations CPT Code Status Date Vaccine Lot # [id number] Given 07/31/2013 Flu Vaccine Split Virus Preservative Free For 1345 4p Indiv 3Yr Older Vital Signs Date Vital Result Comment 05/16/2018 Height 67.5 inches 5'7.50" Weight 155.00 [...] Test Date Test Result H/L Range Note CMP Panel 06/19/2013 Sodium 138 mmol/L 133-145 [...] Egfr Non- 116.2 >60 Egfr 149.5 >60 1 CBC W/Auto Diff 06/19/2013 White Blood Count [...] 06/19/2013 Erythrocyte Sed Rate 10 mm/Hr 0-20 2 C Reactive Protein < 0.5 mg/dL Less than 0.5 3 CBC With Manual Diff 05/29/2012 White Blood [...] 0.5 Rheumatoid Factor < 15 IU/mL <15 4 Cyclic Citrullinated Pep Igg <15.6 U () 5 Comp Metabolic Panel 05/29/2012 Sodium 134 mmol/L Low 135-145 Potassium 4.1 mmol/L 3.5-5.0 Chloride 99 mmol/L Low 101-111 Co2 (Carbon Dioxide) 29.0 mmol/L 22-32 Anion Gap 6.0 mmol/L 2-11 6 Glucose 91 mg/dL 70-100 BUN 10 mg/dL 6-24 Creatinine 0.9 mg/dL 0.50-1.40 One Over Creatinine 1.11 BUN/Creatinine Ratio 11.1 8-20 Calcium 10.0 mg/dL High 8.1-9.9 Total Protein 6.4 GM/DL 6.2-8.1 Albumin 4.4 GM/DL 3.6-5.4 Globulin 2.0 GM/DL 2-4 Albumin/Globulin Ratio 2.2 1-3 Bilirubin Total 0.5 mg/dL 0.4-1.5 7 Alkaline Phosphatase 68 U/L 39-117 Alt (SGPT) 18 U/L 17-63 Ast (Sgot) 23 U/L 12-42 eGFR Non- 87.3 > 60 eGFR 112.3 > 60 8 1 Because ethnic data is not always readily [...] 15-29 5 Kidney failure <15 (or dialysis) 2 @ Ordering doctor for CBCM edited from [id number] to [id number] @ by [id number] at 06/19/13 1202 @ Ordering doctor for SED edited from [id number] to [id number] @ by [id number] at 06/19/13 1202 @ Submitting doctor edited from [id number] to [id number] @ by [id number] at 06/19/13 1202 3 @ Ordering doctor for CMP edited from [employer] to [id number] @ by [id number] at 06/19/13 1202 @ Ordering doctor for CRP edited from [id number] to [id number] @ by [id number] at 06/19/13 1202 @ Submitting doctor edited from [id number] to [id number] @ by [email or web address] at 06/19/13 1202 4 Test Performed by: [place] [address] Educational Resource Center Teacher: Krishna Moura III, M.D. 5 -- REFERENCE VALUE -- <20.0 (Negative) Test Performed by: [place] [address] [employer] Resource Center Teacher: Krishna Moura III, M.D. 6 Anion gap measurement may be of limited value in the presence of any alkalosis, especially in a combined acid base disorder. . 7 A metabolite of Naproxen, O-desmethylnaproxen, has been shown to interfere with the Jendrassik-Antonio method for measuring total bilirubin. Samples from patients who have taken Naproxen have shown spurious elevation in total bilirubin levels. 8 Because ethnic data is not always readily [...] dialysis) Procedures Date CPT Code Description Status 04/17/2018 36146 Long Arm Splint Application Completed 04/17/2018 02501 Inject/Drain Joint/Bursa Intermediate W/O US Completed Encounters Type Date Location Provider CPT E/M Dx Office Visit 05/02/2018 [facility] [place] [address] M70.22 11:15a [facility] [place] Office Visit 04/17/2018 [facility] [address] M70.22 9:00a [facility] [place] Office Visit 07/31/2013 [facility] ISA[facility] John [address] 338.4 11:00a Of [facility] 696.1 724.02 719.49 V04.81 Office Visit 07/10/2012 1:00p Rhe[facility]ology Services Jaleel Meza M.D. 65309 338.4 Of [facility] 696.1 Office Visit 05/29/2012 2:20p [facility] Services Jaleel Meza M.D. 04933 696.1 Of [facility] 724.02 719.49 Office Visit 05/01/2011 2:40p [facility] Services Jaleel Meza [address]03[address] 719.49 Of [facility] 696.1 Plan of Care 05/16/2018 - Russell Huerta, MDM70.22 Olecranon bursitis, left elbowFollow up: Follow up: 10-14 days postop
[2018-06-08 11:49] LABS: ABS Basophils 0.1 10^3/ul (0-0.2); ABS Eosinophils 0.1 10^3/ul (0-0.6); ABS Lymphocytes 1.9 10^3/ul (1.0-4.8); ABS Monocytes 0.7 10^3/ul (0-0.8); ABS Neutrophils 5.1 10^3/ul (1.5-7.7); ABS Nucleated RBC 0 10^3/ul; Eosinophil % 1.8 % (0-6); Hematocrit 40 % (42-52); Hemoglobin 13.9 g/dl (14.0-18.0); Mean Corpuscular HGB Conc 35 g/dl (31-36); Mean Corpuscular Hemoglobin 32 pg (27-31); Mean Corpuscular Volume 93 fL (80-94); Mean Platelet Volume 6.9 um3 (7.4-10.4); Nucleated Red Blood Cells % 0; Platelet Count 367 10^3/ul (150-450); Red Blood Count 4.28 10^6/ul (4.00-5.40); Red Cell Distribution Width 14 % (10.5-15); White Blood Count 7.8 10^3/ul (3.5-10.8)
[2018-06-08 12:00] LABS: EGFR Non-African American 114.3 (>60)
--- NOTE | 2018-06-08 12:16 | RAD ---
Indication: Left upper extremity swelling. Real-time sonography of the left upper extremity was performed. Bilaterally the internal jugular veins appear to be patent with normal phasic flow. The subclavian vein is patent bilaterally. The left axillary and brachial vein appear patent and compressible. Left basilic vein, cephalic vein, radial vein and ulnar vein are patent and compressible. IMPRESSION: No evidence of deep venous thrombosis of left upper extremity is noted.
--- NOTE | 2018-06-08 12:24 | ED ---
Upper Extremity Pain - HPI Summary HPI Summary: Pt. is a 62-year-old male who presents emergency department for swelling to his left arm 2 days. Patient had percent removed from left elbow on 05/26/[address] Huerta. Pt. states last week elbow filled with blood and Dr. Huerta aspirated in office 2 days ago. Pt. presents to ER today because swelling has returned to elbow and is extending to left hand. Pt. denies fever/chills. He is not a DM. Denies CP or SOB. Symptoms are mild-moderate in severity. Moving and touching arm makes symptoms worse. Nothing makes symptoms better. - History of Current Complaint Chief Complaint: EDExtremityUpper Stated Complaint: LT ARM ISSUE/POST SURGERY Time Seen by Provider: 06/08/18 11:18 Hx Obtained From: Patient - Allergies/Home Medications Allergies/Adverse Reactions: Allergies Allergy/AdvReac Type Severity Reaction Status Date / Time mold Allergy Intermediate Difficulty Verified 06/08/18 11:01 Breathing/Wheezing codeine AdvReac Severe ADDICTION Verified 06/08/18 11:01 ISSUES IN PAST DUST MITES Allergy Intermediate Difficulty Uncoded 06/08/18 11:01 Breathing/Wheezing Home Medications: Home Medications Lidoderm 5% Patch* 1 patch TRANSDERM DAILY 06/08/18 [History Confirmed 06/08/18] PMH/Surg Hx/FS Hx/Imm Hx Previously Healthy: Yes Endocrine/Hematology History: Denies: Hx Anticoagulant Therapy, Hx Bone Marrow Disease, Hx Diabetes, Hx Sickle Cell Disease, Hx Thyroid Disease, Hx Anemia Cardiovascular History: Denies: Hx Congestive Heart Failure, Hx Deep Vein Thrombosis, Hx Hypertension , Hx Myocardial Infarction, Hx Pacemaker/ICD Respiratory History: Reports: Hx Asthma Denies: Hx Chronic Obstructive Pulmonary Disease (COPD), Hx Lung Cancer GI History: Denies: Hx Gall Bladder Disease, Hx Gastrointestinal Bleed, Hx Ulcer, Hx Urosepsis History: Denies: Hx Kidney Stones, Hx Renal Disease Musculoskeletal History: Reports: Hx Arthritis, Hx Bursitis - LEFT ELBOW Sensory History: Reports: Hx Contacts or Glasses - GLASSES Denies: Hx Cataracts, Hx Glaucoma, Hx Hearing Aid Opthamlomology History: Reports: Hx Contacts or Glasses - GLASSES Denies: Hx Cataracts, Hx Glaucoma Neurological History: Reports: Other Neuro Impairments/Disorders - IMPAIRED GAIT , USES A CANE FOR AMBULATION Denies: Hx Dementia, Hx Migraine, Hx Seizures, Hx Transient Ischemic Attacks (TIA) Psychiatric History: Denies: Hx Anxiety, Hx Depression, Hx Schizophrenia, Hx Bipolar Disorder - Surgical History Surgery Procedure, Year, and Place: L3, L4, L5 FUSION WITH INSTRUMENTATION (RODS /SCREWS) 2006 [facility]. 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 Substance Use Type: Reports: Prescribed Substance Use Comment - Amount & Last Used: OXYCODONE AND MS DAILY FOR PAIN CONTROL Smoking Status (MU): Heavy Every Day Tobacco Smoker Type: Cigarettes Amount Used/How Often: 1 1/2 PPD FOR 54 YRS Length of Time of Smoking/Using Tobacco: 54 YRS Have You Smoked in the Last Year: Yes Review of Systems Constitutional: Negative Negative: Fever, Chills Positive: Other - Left arm swelling Negative: Weakness, Paresthesia, Numbness All Other Systems Reviewed And Are Negative: Yes Physical Exam Triage Information Reviewed: Yes Vital Signs On Initial Exam: Initial Vitals Temp Pulse Resp BP Pulse Ox 97.5 F 69 16 123/71 98 06/08/18 10:56 06/08/18 10:56 06/08/18 10:56 06/08/18 10:56 06/08/18 10:56 Vital Signs Reviewed: Yes Appearance: Positive: Well-Appearing - Pt. sitting on bed in NAD. present. Skin: Positive: Warm, Dry Head/Face: Positive: Normal Head/Face Inspection Eyes: Positive: Normal, EOMI Neck: Positive: Supple Musculoskeletal: Positive: Other - Healing surgical wound noted to lateral aspect over elbow. No purulent drainage or surrounding erythema. Large effusion without increased warmth or redness. Mild diffuse edema into left hand. Good palpable radial pulse. Neurological: Positive: Normal, CN Intact II-III Psychiatric: Positive: Affect/Mood Appropriate Diagnostics - Vital Signs Vital Signs Temp Pulse Resp BP Pulse Ox 06/08/18 10:56 97.5 F 69 16 123/71 98 - Laboratory Lab Results: Lab Results 06/08/18 06/08/18 Range/Units 11:34 11:34 WBC 7.8 (3.5-10.8) 10^3/ul RBC 4.28 (4.00-5.40) 10^6/ul Hgb 13.9 L (14.0-18.0) g/dl Hct 40 L (42-52) % MCV 93 (80-94) fL MCH 32 H (27-31) pg MCHC 35 (31-36) g/dl RDW 14 (10.5-15) % Plt Count 367 (150-450) 10^3/ul MPV 6.9 L (7.4-10.4) um3 Neut % (Auto) 65.0 (38-83) % Lymph % (Auto) 24.0 L (25-47) % [place] % (Auto) 8.4 H (0-7) % Eos % (Auto) 1.8 (0-6) % Baso % (Auto) 0.8 (0-2) % Absolute Neuts (auto) 5.1 (1.5-7.7) 10^3/ul Absolute Lymphs (auto) 1.9 (1.0-4.8) 10^3/ul Absolute Monos (auto) 0.7 (0-0.8) 10^3/ul Absolute Eos (auto) 0.1 (0-0.6) 10^3/ul Absolute Basos (auto) 0.1 (0-0.2) 10^3/ul Absolute Nucleated RBC 0 10^3/ul Nucleated RBC % 0 Sodium 136 (135-145) mmol/L Potassium 4.5 (3.5-5.0) mmol/L Chloride 103 (101-111) mmol/L Carbon Dioxide 28 (22-32) mmol/L Anion Gap 5 (2-11) mmol/L BUN 9 (6-24) mg/dL Creatinine 0.70 (0.67-1.17) mg/dL Est GFR ( Amer) 138.3 (>60) Est GFR (Non-Af Amer) 114.3 (>60) BUN/Creatinine Ratio 12.9 (8-20) Glucose 85 (70-100) mg/dL Calcium 9.3 (8.6-10.3) mg/dL Total Bilirubin 0.50 (0.2-1.0) mg/dL AST 15 (13-39) U/L ALT 10 (7-52) U/L Alkaline Phosphatase 71 (34-104) U/L C-Reactive Protein 2.09 (<8.01) mg/L Total Protein 6.6 (6.4-8.9) g/dL Albumin 4.3 (3.2-5.2) g/dL Globulin 2.3 (2-4) g/dL Albumin/Globulin Ratio 1.9 (1-3) Result Diagrams: 06/08/18 11:34 06/08/18 11:34 Lab Statement: Any lab studies that have been ordered have been reviewed, and results considered in the medical decision making process. Course/Dx - Course Course Of Treatment: Patient presenting with increased swelling to left arm after elbow surgery to remove bursa. He is afebrile and well-appearing. Wound is well appearing without signs of infection. He does have mild swelling into hand, Will obtain venous duplex rule out DVT given recent surgery. Basic labs ordered to evaluate for signs of infection. Ultrasound is negative for DVT or acute findings, reading per radiology. Blood work showed normal CRP level and normal WBC count. Case was discussed briefly with orthopedics was in the ER at the time, Dr. Lyman, who recommends continuing compression and follow-up with orthopedic office. Results were discussed with patient. He is to call Dr. Huerta office tomorrow for close apt. elbow was rewrapped by myself. Advised patient to keep compression on, elevate and ice arm. To return to the ER for increased swelling, pain, fever, vomiting. Patient understands and agrees with plan. - Diagnoses Provider Diagnoses: Arm swelling, Effusion into joint Discharge - Sign-Out/Discharge Documenting (check all that apply): Patient Departure - Discharge Plan Condition: Good Disposition: HOME Referrals: Russell Huerta MD [Medical Doctor] - Lenny Beckett MD [Primary Care Provider] - Additional Instructions: Call Dr. Huerta' office tomorrow morning to schedule an appointment Keep compression on Ice and elevate Return to ER for fever, vomiting, increased swelling or pain - Billing Disposition and Condition Condition: GOOD Disposition: Home
[2018-06-08 13:01] VITALS: BP 123/80
== END 2018-06-08 13:00 | disposition home or self-care (01) ==
LOC: ED 10:49
DX: M79.89 Other specified soft tissue disorders (principal); M25.422 Effusion, left elbow; F17.210 Nicotine dependence, cigarettes, uncomplicated; Z88.5 Allergy status to narcotic agent
CPT/HCPCS: 36415; 80053; 85025; 86140; 99282

== ENCOUNTER 2018-12-05 16:15 | Emergency (ER) | payer MEDICARE ==
[2018-12-05 16:52] VITALS: BP 144/74
[2018-12-05] MEDS ORDERED: Naproxen TAB* 250 MG PO ONE (16:56)
--- NOTE | 2018-12-05 17:09 | UC ---
Lower Extremity/Ankle HPI - HPI Summary HPI Summary: 62-year-old male presents with complaints of left foot pain after being accidentally stepped on by a workhorse earlier this afternoon. States he was wearing rubber boots at the time of the injury. Complains of pain to the dorsal and medial aspect of his left foot with some mild redness. States he was not initially able to bear weight on the foot however he was able to bear weight and ambulate in the clinic with the assistance of a walker. Denies numbness or tingling. - History of Current Complaint Chief Complaint: UCLowerExtremity Stated Complaint: LEFT FOOT INJURY/HORSE STEPPED ON Time Seen by Provider: 12/05/18 16:53 Hx Obtained From: Patient Pain Intensity: 10 - Allergies/Home Medications Allergies/Adverse Reactions: Allergies Allergy/AdvReac Type Severity Reaction Status Date / Time mold Allergy Intermediate Difficulty Verified 12/05/18 16:46 Breathing/Wheezing codeine AdvReac Severe ADDICTION Verified 12/05/18 16:46 ISSUES IN PAST DUST MITES Allergy Intermediate Difficulty Uncoded 12/05/18 16:46 Breathing/Wheezing Home Medications: Home Medications Albuterol HFA INHALER* [Ventolin HFA Inhaler*] 2 puff INH Q4H PRN 12/05/18 [ History Confirmed 12/05/18] Pain Med 1 tab PO DAILY 12/05/18 [History Confirmed 12/05/18] PMH/Surg Hx/FS Hx/Imm Hx - Additional Past Medical History Additional PMH: Chronic pain syndrome, chronic back pain Previously Healthy: Yes Respiratory History: COPD Psychological History: Depression Other History Of: Negative For: HIV, Hepatitis B, Hepatitis C, Anticoagulant Therapy - Surgical History Surgical History: Yes Surgery Procedure, Year, and Place: L3, L4, L5 FUSION WITH INSTRUMENTATION (RODS /SCREWS) 2006 [facility]. [place] MIDDLE FINGER [place] [facility] 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 Negative: Bruising Respiratory: Positive: Negative Cardiovascular: Positive: Negative Gastrointestinal: Positive: Negative Genitourinary: Positive: Negative Motor: Negative: Weakness Musculoskeletal: Positive: Other: - See HPI Neurological: Positive: Negative Is Patient Immunocompromised?: No Physical Exam - Summary Physical Exam Summary: GENERAL APPEARANCE: Adult male that appears older than stated age, alert and cooperative, and appears to be in mild-moderate pain. CARDIAC: Normal S1 and S2. No S3, S4 or murmurs. Rhythm is regular. There is no peripheral edema, cyanosis or pallor. Extremities are warm and well perfused. Capillary refill is less than 2 seconds. Peripheral pulses intact. LUNGS: Clear to auscultation without rales, rhonchi, wheezing or diminished breath sounds. ABDOMEN: Positive bowel sounds. Soft, nondistended, nontender. No guarding or rebound. No masses or hepatosplenomegally. MUSKULOSKELETAL: Tenderness to the dorsal aspect of the second metatarsal and medial and lateral aspect of the first metatarsal with no gross deformity. There is some mild erythema to the dorsal medial left foot without ecchymosis or edema. Sensation and circulation intact. SKIN: Skin normal color, texture and turgor. Triage Information Reviewed: Yes Vital Signs: Initial Vital Signs Temp 99.3 F 12/05/18 16:49 Pulse 90 12/05/18 16:49 Resp 18 12/05/18 16:49 BP 144/74 12/05/18 16:49 Pulse Ox 98 12/05/18 16:49 Vital Signs Reviewed: Yes Diagnostics - Radiology No standard instances Radiology Interpretation Completed By: ED Physician - No acute fracure or dislocation Lower Extremity Course/Dx - Course Course Of Treatment: 62-year-old male presents with complaints of left foot pain after being accidentally stepped on by a workhorse earlier this afternoon. States he was wearing rubber boots at the time of the injury. Complains of pain to the dorsal and medial aspect of his left foot with some mild redness. States he was not initially able to bear weight on the foot however he was able to bear weight and ambulate in the clinic with the assistance of a walker. Denies numbness or tingling. Afebrile. Mildly elevated blood pressure was vital signs stable. Exam reveals an adult male who appears older than his stated age in mild discomfort with tenderness to the dorsal aspect of the second metatarsal and medial and lateral aspect of the first metatarsal with no gross deformity. There is some mild erythema to the dorsal medial left foot without ecchymosis or edema. Sensation and circulation intact. X-ray shows no acute fracture or dislocation. Suspect contusion of the left foot. Patient has chronic back problems and non-weightbearing with crutches would unnecessarily increase fall risk therefore will place in CAM boot and have him continue to use his walker for support while ambulating. Also recommend continued use of his current pain regimen as well as RICE. He is to follow up with orthopedic surgery in 5 days if symptoms persist. Anticipatory guidance and warning symptoms reviewed. Verbalizes understanding and agrees with POC. - Differential Dx/Diagnosis Differential Diagnosis/HQI/PQRI: Contusion, Fracture (Closed) Provider Diagnosis: Contusion of left foot Discharge - Sign-Out/Discharge Documenting (check all that apply): Patient Departure All imaging exams completed and their final reports reviewed: No - Discharge Plan Condition: Stable Disposition: HOME Patient Education Materials: Foot Contusion (ED) Referrals: Lenny Beckett MD [Primary Care Provider] - Jerry Gamboa MD [Medical Doctor] - 5 Days (If no improvement.) Additional Instructions: The x-rays performed in the clinic today showed no evidence of a fracture. The x-rays will be reviewed by the radiologist tomorrow morning and we will contact you if they see anything that would change her plan of care. Wear the CAM boot was applied in the clinic today for support and pain management. You may remove at bedtime and to shower but should wear at all other times until you are pain-free. Rest the foot as much as possible. Continue to use your walker for ambulation. Apply ice to the effected area for 15-20 minutes at least 4 times a day to help reduce any pain and swelling. Keep the foot elevated while sitting to help reduce any swelling. Continue using your pain medications as directed. Follow-up with Dr. Gamboa, orthopedic surgery in 5 days if no improvement in symptoms. Call for an appointment. Seek immediate medical attention in the emergency room if you have severe pain that is not managed with pain medication, have increased swelling, you develop numbness or tingling in the foot or toes, are unable to walk or bear weight, or have any worsening of symptoms. - Billing Disposition and Condition Condition: STABLE Disposition: Home
--- NOTE | 2018-12-06 08:25 | UC ---
- Progress Note Progress Note: x ray report left foot : IMPRESSION: #. Negative exam. Course/Dx - Diagnoses Provider Diagnoses: Contusion of left foot Discharge - Sign-Out/Discharge Documenting (check all that apply): Patient Departure All imaging exams completed and their final reports reviewed: Yes - Discharge Plan Condition: Stable Disposition: HOME Patient Education Materials: Foot Contusion (ED) Referrals: Jerry Gamboa MD [Medical Doctor] - 5 Days (If no improvement.) Lenny Beckett MD [Primary Care Provider] - Additional Instructions: The x-rays performed in the clinic today showed no evidence of a fracture. The x-rays will be reviewed by the radiologist tomorrow morning and we will contact you if they see anything that would change her plan of care. Wear the CAM boot was applied in the clinic today for support and pain management. You may remove at bedtime and to shower but should wear at all other times until you are pain-free. Rest the foot as much as possible. Continue to use your walker for ambulation. Apply ice to the effected area for 15-20 minutes at least 4 times a day to help reduce any pain and swelling. Keep the foot elevated while sitting to help reduce any swelling. Continue using your pain medications as directed. Follow-up with Dr. Gamboa, orthopedic surgery in 5 days if no improvement in symptoms. Call for an appointment. Seek immediate medical attention in the emergency room if you have severe pain that is not managed with pain medication, have increased swelling, you develop numbness or tingling in the foot or toes, are unable to walk or bear weight, or have any worsening of symptoms. - Billing Disposition and Condition Condition: STABLE Disposition: Home
== END 2018-12-05 18:33 | disposition home or self-care (01) ==
LOC: UCCORT 16:15
DX: S90.32XA Contusion of left foot, initial encounter (principal); J44.9 Chronic obstructive pulmonary disease, unspecified; F17.210 Nicotine dependence, cigarettes, uncomplicated; Z91.09 Other allergy status, other than to drugs and biological substances; Z79.899 Other long term (current) drug therapy; Z88.5 Allergy status to narcotic agent; W55.19XA Other contact with horse, initial encounter; Y92.9 Unspecified place or not applicable
CPT/HCPCS: 99213; A9270-GY; G0463

== ENCOUNTER 2019-04-29 15:10 | Emergency (ER) | payer MEDICARE ==
[2019-04-29 15:46] VITALS: BP 131/78
--- NOTE | 2019-04-29 15:56 | UC ---
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 b/l arms, abdomen and back b/l. no fevers or d/c. - History of Current Complaint Chief Complaint: UCRash Time Seen by Provider: 04/29/19 15:52 Stated Complaint: SKIN CONCERN Pain Intensity: 0 - Allergy/Home Medications Allergies/Adverse Reactions: Allergies Allergy/AdvReac Type Severity Reaction Status Date / Time mold Allergy Intermediate Difficulty Verified 04/29/19 15:46 Breathing/Wheezing codeine AdvReac Severe ADDICTION Verified 04/29/19 15:46 ISSUES IN PAST DUST MITES Allergy Intermediate Difficulty Uncoded 04/29/19 15:46 Breathing/Wheezing Home Medications: Home Medications diPHENhydraMINE PO* [Benadryl PO 25 MG TAB*] 25 mg PO ONCE 04/29/19 [History Confirmed 04/29/19] PMH/Surg Hx/FS Hx/Imm Hx Previously Healthy: Yes Other History Of: Negative For: HIV, Hepatitis B, Hepatitis C, Anticoagulant Therapy - Surgical History Surgical History: Yes Surgery Procedure, Year, and Place: L3, L4, L5 FUSION WITH INSTRUMENTATION (RODS /SCREWS) 2006 [facility]. [place] MIDDLE FING[place] [facility] [place] - Family History Known Family History: Positive: Cardiac Disease, Hypertension, Diabetes Family History: NON CONTRIBUTORY - Social History Alcohol Use: None Alcohol Amount: 38 years sober Substance Use Type: Prescribed Substance Use Comment - Amount & Last Used: OXYCODONE AND MS DAILY FOR PAIN CONTROL Smoking Status (MU): Heavy Every Day Tobacco Smoker Type: Cigarettes Amount Used/How Often: 1 1/2 PPD FOR 54 YRS Length of Time of Smoking/Using Tobacco: 54 YRS Have You Smoked in the Last Year: Yes - Immunization History Most Recent Influenza Vaccination: none Vaccination Up to Date: No Review of Systems All Other Systems Reviewed And Are Negative: Yes Constitutional: Positive: Negative Skin: Positive: Rash Eyes: Positive: Negative ENT: Positive: Negative Respiratory: Positive: Negative Cardiovascular: Positive: Negative Gastrointestinal: Positive: Negative Genitourinary: Positive: Negative Motor: Positive: Negative Neurovascular: Positive: Negative Musculoskeletal: Positive: Negative Neurological: Positive: Negative Psychological: Positive: Negative Is Patient Immunocompromised?: No Physical Exam Triage Information Reviewed: Yes Appearance: Well-Appearing, No Pain Distress, Well-Nourished Vital Signs: Initial Vital Signs Temp 98.6 F 04/29/19 15:43 Pulse 66 04/29/19 15:43 Resp 20 04/29/19 15:43 BP 131/78 04/29/19 15:43 Pulse Ox 97 04/29/19 15:43 Vital Signs Reviewed: Yes Eye Exam: Normal ENT Exam: Normal Neck exam: Normal Respiratory Exam: Normal Respiratory: Positive: Lungs clear Cardiovascular Exam: Normal Cardiovascular: Positive: RRR Abdominal Exam: Normal Musculoskeletal Exam: Normal Neurological Exam: Normal Psychological Exam: Normal Skin: Positive: Rashes - b/l upper abdomen, bacl and b/l antecubital fossas w/ rashe of erythematous base w/ superimposed vessicles and excoriation. cool. no dc. no streaks Course/Dx - Course Course Of Treatment: -has taken prednisone in past without any SEs. toleraets it well. - Differential Diagnoses - Skin Complaint Differential Diagnoses: Cellulitis, Contact Dermatitis - Diagnoses Provider Diagnosis: Contact dermatitis Discharge - Sign-Out/Discharge Documenting (check all that apply): Patient Departure All imaging exams completed and their final reports reviewed: No Studies - Discharge Plan Condition: Stable Disposition: HOME Prescriptions: predniSONE [Prednisone 20 MG TAB] 20 mg PO DAILY 13 Days #20 tablet Patient Education Materials: Contact Dermatitis (ED) Referrals: Lenny Beckett MD [Primary Care Provider] - 1 Week Additional Instructions: -Treatment is with prednisone, the risks of prednisone including but not limited to anxiety, agitation, insomnia, GI upset, elevated blood pressures and blood sugar readings, adrenal crisis and avascular necrosis of the hip. - Billing Disposition and Condition Condition: STABLE Disposition: Home
== END 2019-04-29 16:35 | disposition home or self-care (01) ==
LOC: UCCORT 15:10
DX: L25.5 Unspecified contact dermatitis due to plants, except food (principal); Z88.5 Allergy status to narcotic agent; Z91.048 Other nonmedicinal substance allergy status; F17.210 Nicotine dependence, cigarettes, uncomplicated
CPT/HCPCS: 99212; G0463

== ENCOUNTER 2019-10-23 17:37 | Emergency (ER) | payer MEDICARE ==
--- OUTSIDE RECORDS SUMMARY | 2019-10-23 17:46 | XMS REPORT | Continuity of Care Document ---
:1955 External Reference #:[id number] Author Name Primo Larsen DO MPH Address [address] [facility], [address] [place] [address] Care Team Providers Name Role Phone Lenny Beckett M.D. 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 Medicine Problems Description No Information Available Social History Type Date Description Comments Sex Unknown Cigarette Use Current Cigarette Smoker 1 Pack Daily ETOH Use Negative For Has consumed alcohol in the past ETOH Use Negative For Occasionally consumed alcohol in the past Recreational Drug Use Former Drug User Tobacco Use Start: Unknown Patient is a current smoker, smokes every day Smoking Status Reviewed: 10/19/19 Patient is a current smoker, smokes every day Allergies, Adverse Reactions, Alerts Active Allergies Reaction Severity Comments Date Codeine 03/15/2006 Medications Active Medications SIG Qnty Indications Ordering Date Provider Elijah si apply to 60units Primo Larsen, 08/14/2019 1.3% affected area every DO, MPH Patches 12 hours chronic pain patient Morphine Sulfate ER si by mouth 60tabs Primo Larsen, 03/26/2016 every 12 hours as DO, MPH 15mg Tablets ER directed chronic pain patient fill under workman's compensation. Oxycodone HCL si/4-10/01 30ml Primo Larsen, 12/15/2012 milliliters sl by , MPH 100mg/5ML mouth every 6 to 8 Concentrate hours as directed chronic pain patient fill under Piroxicam si by mouth 30caps Primo Larsen, 04/25/2006 20mg every day as DO, MPH Capsules directed Neurontin si by mouth 90tabs Primo Larsen, 04/25/2006 600mg every 8 hours as TAD FRIEDMAN Tablets directed chronic pain patient Cymbalta si by mouth 60caps Primo Larsen, 04/25/2006 60mg Caps every [address] directed chronic pain patient Immunizations Description No Information Available Vital Signs Date Vital Result Comment 10/19/2019 8:54am BP Systolic 132 mmHg BP Diastolic 80 mmHg Heart Rate 84 /min Respiratory Rate 20 /min Height 67.50 inches 5'7.50" Weight 140.00 lb Pain Level 9 Pain at this time. Pain Level With Medicine 8 on average with meds Pain Level Without Medicine 9 without meds Pain Level After Procedure 7 BP Systolic Recheck 134 mmHg Pulse: 82 BP Diastolic Recheck 86 mmHg Pulse: 82 BMI (Body Mass Index) 21.6 kg/m2 09/14/2019 9:20am BP Systolic 128 mmHg BP Diastolic 82 mmHg Heart Rate 80 /min Respiratory Rate 20 /min Height 67.50 inches 5'7.50" Weight 142.00 lb Pain Level 8 Pain at this time. Pain Level With Medicine 8 on average with meds Pain Level Without Medicine 9 without meds BMI (Body Mass Index) 21.9 kg/m2 Results Description No Information Available Procedures Description No Information Available Medical Devices Description No Information Available Encounters Type Date Location Provider Dx Diagnosis Office Visit 09/14/2019 Main Office as Of Primo Larsen DO G89.21 Chronic pain due 9:15a 10/31/13 MPH to trauma M54.17 Radiculopathy, lumbosacral region M54.5 Low back pain Z79.891 [facility] (current) use of opiate analgesic Z79.891 [facility] (current) use of opiate analgesic Office Visit 08/14/2019 9:15a Main Office as Primo Larsen G89.21 Chronic pain due Of 10/31/13 TAD FRIEDMAN to trauma M54.17 Radiculopathy, lumbosacral region M54.5 Low back pain Z79.891 [facility] (current) use of opiate analgesic Z79.891 [facility] (current) use of opiate analgesic Office Visit 07/13/2019 9:15a Main Office Primo Larsen M54.17 Radiculopathy, as Of 10/31/13 DO, MPH lumbosacral region M54.5 Low back pain 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 Z79.891 [facility] (current) use of opiate analgesic Office Visit 06/09/2019 9:30a Main Office Primo Larsen, M54.17 Radiculopathy, as Of 10/31/13 DO MPH lumbosacral region M54.5 Low back pain Z79.891 [facility] (current) use of opiate analgesic Z79.891 [facility] (current) use of opiate analgesic Office Visit 05/01/2019 10:00a Main Office as Primo Larsen, G89.21 Chronic pain due Of 10/31/13 DO MPH to trauma M54.17 Radiculopathy, lumbosacral region 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 Z79.891 [facility] (current) use of opiate analgesic Assessments Date Code Description Provider 10/19/2019 G89.21 Chronic pain due to trauma Primo Larsen DO, MPH 10/19/2019 M54.17 Radiculopathy, lumbosacral region Primo Larsen DO, MPH 10/19/2019 M54.5 Low back pain LarsenPrimo carter DO, MPH 10/19/2019 Z79.891 [facility] (current) use of opiate analgesic Primo Larsen DO, MPH 10/19/2019 M65.88 Other synovitis and tenosynovitis, other Primo Larsen DO , MPH site 10/19/2019 M79.18 Myalgia, other site Primo Larsen DO, MPH 10/19/2019 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 Primo Larsen DO, MPH 09/14/2019 G89.21 Chronic pain due to trauma Primo Larsen DO, MPH 09/14/2019 M54.17 Radiculopathy, lumbosacral region Primo Larsen DO, MPH 09/14/2019 M54.5 Low back pain LarsenPrimo carter DO, MPH 09/14/2019 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 LarsenPrimo carter DO, MPH 09/14/2019 Z79.891 [facility] (current) use of opiate analgesic Larsen, Primo , DO, MPH 08/14/2019 G89.21 Chronic pain due to trauma Larsen, Primo, DO, MPH 08/14/2019 M54.17 Radiculopathy, lumbosacral region Larsen, Primo, DO, MPH 08/14/2019 M54.5 Low back pain Larsen, Primo, DO, MPH 08/14/2019 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 Larsen, Primo , DO, MPH 08/14/2019 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 Larsen, Primo , DO, MPH 07/13/2019 M54.17 Radiculopathy, lumbosacral region Larsen, Primo, DO, MPH 07/13/2019 M54.5 Low back pain Larsen, Primo, DO, MPH 07/13/2019 Z79.891 [facility] (current) use of opiate analgesic Larsen, Primo , DO, MPH 07/13/2019 Z79.891 [facility] (current) use of opiate analgesic Larsen, Primo , DO, MPH 06/09/2019 M54.17 Radiculopathy, lumbosacral region Larsen, Primo, DO, MPH 06/09/2019 M54.5 Low back pain Larsen, Primo, DO, MPH 06/09/2019 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 Larsen, Primo , DO, MPH 06/09/2019 Z79.891 [facility] (current) use of opiate analgesic Larsen, Primo , DO, MPH 05/01/2019 G89.21 Chronic pain due to trauma Larsen, Primo, DO, MPH 05/01/2019 M54.17 Radiculopathy, lumbosacral region Larsen, Primo, DO, MPH 05/01/2019 Z79.891 [facility] (current) use of opiate analgesic Larsen, Primo , DO, MPH 05/01/2019 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 Symptoms and complaints discussed and reviewed today. No significant changes in physical findings. Continue current medical pain management.M54.17 Radiculopathy, lumbosacral regionComments:Chronic. Symptoms and complaints discussed and reviewed today. No changes in physical findings; patient is stable on current medical therapy.M54.5 Low back painComments: Chronic. Symptoms and complaints discussed and reviewed today.No changes in physical findings. Patient is stable and comfortable when current medical therapy is rendered.Z79.891 [facility] (current) use of opiate analgesicNew Labs: Urine Drug Screen, Ordered: 10/19/19Comments:Urine drug screen sample taken. Rapid Point of Care Cup was reviewed in office with patient. Will send out UDT Rapid to Quantitative lab for confirmation testing. Urine Drug Testing (UDT) was done today to monitor opiate use and to monitor possible use of illicit substances. I will discuss the results at the next appointment from the Quantitative lab.The following tests were ordered:6 AM, AMPH, MERRY, ANGÉLICA, BUP, CARIS, COCM, ETG, FENT, MCSHSG, OPI, OXY, PCP, TAPEN, XTSY, ZOLP. A urine drug test (UDT) using a rapid screen cup was ordered for this patient and collected on site today. Creatinine has been ordered as well for specimen validity, not for kidney function. Urine Drug Testing is a mandatory component of chronic opioid management, as part of the baseline assessment and ongoing re- assessment of opioid therapy. Per [place] [employer], [place] Non-Acute Pain Medical Treatment Guidelines, section F.3.d.i. This test is to be used in conjunction with other clinical information when decisions are to be made to continue, adjust or discontinue treatment. This information includes clinical observation, results of addiction screening, pill counts, and prescription drug monitoring reports. Preliminary UDT screen results are not final and should not be used to determine patient care or plan of treatment. This sample will be sent out for a more comprehensive quantitative confirmation LCMS study. It is part of the treatment process of prescribing controlled substances and is considered standard of care at this clinic.M65.88 Other synovitis and tenosynovitis, other siteComments:Chronic. Symptoms and complaints discussed and reviewed today. Physical findings reviewed and warrant intervention. Continue current medical pain management. Injection therapy today - tendon sheath. Informed consent given/refusal reviewed. See procedure sheet.M79.18 Myalgia, other siteComments:Injection therapy today - Trigger Point injections. Informed consent given/refusal reviewed. See procedure sheet. Symptoms and complaints discussed and reviewed today. Physical findings warrant interventional/injection therapy. Patient is stable and comfortable when current medical therapy isrendered.AllComments:Continue current medical pain management; injection therapy, osteopathic manipulation, PT / modalities, and consults as needed to manage chronic pain.Non - opioid pain management discussed and optionsdiscussed.Side effects discussed; anticipatory guidance given. Patient clearly understand and agree with all medical treatments and suggestions. All medicines prescribed are adequate and appropriate for this patient's complaint of pain, medical history, physical, and personal goals.Goals of Treatment are to provide adequate and appropriate multidisciplinary medical pain management to increase/ maintain patient's quality of life and functionality while maintaining satisfactory side effect profile andminimizing rat exterminator end-organ damage. Importance of regular nutrition throughout the day discussed.Activity as toleratedContinue with PCP Functional Status Description No Information Available Mental Status Description No Information Available Referrals Description No Information Available
--- OUTSIDE RECORDS SUMMARY | 2019-10-23 17:46 | XMS REPORT | Continuity of Care Document ---
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 Nystatin-Triamcinolone MillerOlayinkatall, D.O. 553053-4.1Unit/GM-% Cream Oxycodone HCL Take 1 4 To 1 2 Unknown 100mg/5ML ML 0.25 To 0.5ML Concentrate By Mouth Under The Tongue Every 6 Morphine Sulfate ER Take One Tablet Unknown 15mg By Mouth Every 12 Tablets ER Hours as Directed Maximum Daily Dos Duloxetine HCL Take One Capsule Unknown 60mg Caps DR By Mouth Every 12 Part Hours as Directed Maximum Daily DO Piroxicam Take One Capsule Unknown 20mg Capsules By Mouth Every Day as Directed Maximum Daily Dose Tizanidine HCL Take 1 4 To 1 2 Unknown 4mg Tablets Tablet By Mouth Three Times A Day as Directed Maximum Flector Apply 1 Patch To Unknown 1.3% Patches Affected Area Every 12 Hours Maximum Daily Dose 2 P Gabapentin Take One Tablet Unknown 600mg Tablets By Mouth Every 8 Hours as Directed Maximum Daily Dose Immunizations Description No Information Available Vital Signs Description No Information Available Results Description No Information Available Procedures Date Code Description Status 09/01/2019 66487 Eye Exam Est Patient Comprehensive Completed Medical Devices Description No Information Available Encounters Description No Information Available Assessments Date Code Description Provider 09/01/2019 H04.123 Dry eye syndrome of bilateral lacrimal glands Noel Reynaga MD 09/01/2019 H40.033 Anatomical narrow angle, bilateral Noel Reynaga MD 09/01/2019 H25.813 Combined forms of age-related cataract, bilateral Noel Reynaga MD Plan of Treatment Future Appointment(s):09/02/2020 9:30 am - Noel Reynaga MD at [facility]/ 03/2019 - Noel Reynaga MDH04.123 Dry eye syndrome of bilateral lacrimal glandsFollow up:1 year exam; gonio prior to emwvuhI44.033 Anatomical narrow angle, bilateralComments:- in setting of hyperopia- non-occludable on gonioscopy - reviewed signs of angle closure; headaches with halos, blurred vision and need for eval- will afhwduS64.813 Combined forms of age-related cataract, bilateralComments:- not visually significant or bothersome- follow at this time - provided updated rx for glasses Functional Status Description No Information Available Mental Status Description No Information Available Referrals Description No Information Available
--- OUTSIDE RECORDS SUMMARY | 2019-10-23 17:46 | XMS REPORT | Continuity of Care Document ---
:1955 External Reference #:[id number] Author Name Primo Larsen DO MPH Address [address] [place] [address], [address] [place] [address] Care Team Providers Name Role Phone Lenny Beckett M.D. 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 [phone] Medicine Problems Description No Information Available Social History Type Date Description Comments Sex Unknown Cigarette Use Current Cigarette Smoker 1 Pack Daily ETOH Use Negative For Has consumed alcohol in the past ETOH Use Negative For Occasionally consumed alcohol in the past Recreational Drug Use Former Drug User Tobacco Use Start: Unknown Patient is a current smoker, smokes every day Smoking Status Reviewed: 09/14/19 Patient is a current smoker, smokes every [...] as directed chronic pain patient fill under wc Piroxicam si by mouth 30caps Primo Larsen, [...] Available Vital Signs Date Vital Result Comment 09/14/2019 9:20am BP Systolic 128 mmHg BP Diastolic 82 mmHg Heart Rate 80 /min Respiratory Rate 20 /min Height 67.50 inches 5'7.50" Weight 142.00 lb Pain Level 8 Pain at this time. Pain Level With Medicine 8 on average with meds Pain Level Without Medicine 9 without meds BMI (Body Mass Index) 21.9 kg/m2 08/14/2019 8:52am BP Systolic 132 mmHg BP Diastolic 84 mmHg Heart Rate 86 /min Respiratory Rate 20 /min Height 67.50 inches 5'7.50" Weight 138.00 lb Pain Level 8 Pain at this time. 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 Office Visit 07/13/2019 9:15a Main Office Primo Larsen M54.17 Radiculopathy, as Of 10/31/13 TAD FRIEDMAN lumbosacral region M54.5 Low back pain 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 Z79.891 [facility] (current) use of opiate analgesic Office Visit 06/09/2019 9:30a Main Office Primo Larsen M54.17 Radiculopathy, as Of 10/31/13 TAD FRIEDMAN lumbosacral region M54.5 Low back pain 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 Z79.891 [facility] (current) use of opiate analgesic Office Visit 05/01/2019 10:00a Main Office as Primo Larsen G89.21 Chronic pain due Of 10/31/13 DO, MPH to trauma M54.17 Radiculopathy, lumbosacral region 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 Z79.891 [facility] (current) use of opiate analgesic Office Visit 03/27/2019 9:15a Main Office as Primo Larsen G89.21 Chronic pain due Of 10/31/13 DO MPH to trauma M54.17 Radiculopathy, lumbosacral region M54.5 Low back pain Z79.891 [facility] (current) use of opiate analgesic 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 Assessments Date Code Description Provider 09/14/2019 G89.21 Chronic pain due to trauma Larsen, Primo, DO, MPH 09/14/2019 M54.17 Radiculopathy, lumbosacral region Larsen, Primo, DO, MPH 09/14/2019 M54.5 Low back pain Larsen, Primo, DO, MPH 09/14/2019 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 Larsen, Primo , DO, MPH 09/14/2019 Z79.891 [facility] (current) use of opiate analgesic Larsen, Primo , DO, MPH 08/14/2019 G89.21 Chronic pain due to trauma Larsen, Primo, DO, MPH 08/14/2019 M54.17 Radiculopathy, lumbosacral region Larsen, Primo, DO, MPH 08/14/2019 M54.5 Low back pain Larsen, Primo, DO, MPH 08/14/2019 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 Larsen, Primo , DO, MPH 08/14/2019 Z79.891 [facility] (current) use of opiate analgesic Larsen, Primo , DO, MPH 07/13/2019 M54.17 Radiculopathy, lumbosacral region Larsen, Primo, DO, MPH 07/13/2019 M54.5 Low back pain Larsen, Primo, DO, MPH 07/13/2019 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 Larsen, Primo , DO, MPH 07/13/2019 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 Larsen, Primo , DO, MPH 06/09/2019 M54.17 Radiculopathy, lumbosacral region LarsenKina carterph, DO, MPH 06/09/2019 M54.5 Low back pain LarsenPrimo carter, DO, MPH 06/09/2019 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 Larsen, Primo , DO, MPH 06/09/2019 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 Larsen, Primo , DO, MPH 05/01/2019 G89.21 Chronic pain due to trauma LarsenPrimo carter DO, MPH 05/01/2019 M54.17 Radiculopathy, lumbosacral region Kina Larsenph, DO, MPH 05/01/2019 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 Larsen, Primo , DO, MPH 05/01/2019 Z79.891 [facility] (current) use of opiate analgesic Larsen, Primo , DO, MPH 03/27/2019 G89.21 Chronic pain due to trauma LarsenPrimo carter DO, MPH 03/27/2019 M54.17 Radiculopathy, lumbosacral region LarsenKina carterph, DO, MPH 03/27/2019 M54.5 Low back pain Primo Larsen DO, MPH 03/27/2019 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 Rapid Point of [...] ongoing re- assessment of opioid therapy. Per [place] [employer], [place] Non-Acute Pain Medical Treatment Guidelines, section F.3.d.i. [...] is considered standard of care at this clinic.AllComments:Continue current medical pain management; injection therapy , osteopathic manipulation, PT / modalities, and consults [...] while maintaining satisfactory side effect profile andminimizing long term care pharmacist end-organ damage. Importance of regular nutrition throughout the day discussed.Activity as toleratedContinue with PCP Functional Status Description No Information Available Mental Status Description No Information Available Referrals Description No Information Available
[2019-10-23 18:28] VITALS: BP 116/74
--- NOTE | 2019-10-23 19:47 | UC ---
Skin Complaint HPI - HPI Summary HPI Summary: Patient is 64-year-old male presenting with sore on right little toe times one month. Patient states this gradually worsened. He thought that he could make it better with hydrogen peroxide and Neosporin, but it is not improved. Notes throbbing pain that is constant. Denies any drainage or bleeding from the area. Denies anything like this in the past. Patient denies fever and chills. Denies nausea and vomiting. Denies swelling or bruising. Denies trauma or injury to the foot that he knows of. Notes history of back injury. Denies history of diabetes or neuropathy. Heavy every day smoker for 54 years. - History of Current Complaint Chief Complaint: UCSkin Time Seen by Provider: 10/23/19 19:47 Stated Complaint: RIGHT PINKY TOE COMPLAINT Hx Obtained From: Patient Pain Intensity: 9 - Allergy/Home Medications Allergies/Adverse Reactions: Allergies Allergy/AdvReac Type Severity Reaction Status Date / Time mold Allergy Intermediate Difficulty Verified 10/23/19 18:28 Breathing/Wheezing codeine AdvReac Severe ADDICTION Verified 10/23/19 18:28 ISSUES IN PAST DUST MITES Allergy Intermediate Difficulty Uncoded 10/23/19 18:28 Breathing/Wheezing Home Medications: Home Medications Folic Acid TAB* [Folvite TAB*] 1 mg PO BID 10/23/19 [History Confirmed 10/23/19] Lidocaine PATCH 5%* [Lidoderm 5% Patch*] 1 patch TRANSDERM DAILY 10/23/19 [ History Confirmed 10/23/19] PMH/Surg Hx/FS Hx/Imm Hx Other History Of: Negative For: HIV, Hepatitis B, Hepatitis C, Anticoagulant Therapy - Surgical History Surgical History: Yes Surgery Procedure, Year, and Place: L3, L4, L5 FUSION WITH INSTRUMENTATION (RODS /SCREWS) 2006 [facility]. LEFT MIDDLE FINGER RECONSTRUCTION 2007 [facility] [place]. 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 Negative: Fever, Chills Skin: Positive: Other - wound of R small toe Respiratory: Positive: Negative Cardiovascular: Positive: Negative Gastrointestinal: Positive: Negative. Negative: Vomiting, Nausea Neurovascular: Positive: Negative Musculoskeletal: Positive: Arthralgia - R small toe pain, Edema - R small toe Neurological: Negative: Paresthesia, Numbness Physical Exam - Summary Physical Exam Summary: Vital Signs Reviewed: Yes A+Ox3, no distress Eyes: Conjunctiva Clear ENT: Hearing grossly normal Neck: Positive: Supple Respiratory: Positive: No respiratory distress, No accessory muscle use + CTA throughout no w/r Cardiovascular: RRR nl s1, s2 no m/r CBT <2 sec Musculoskeletal Exam: KIM x 4 without difficulty Strength Intact, ROM Intact Neurological: Positive: Alert, + sensation throughout Psychological: Positive: age appropriate behavior Skin: Positive: ~1cm round, pinkish/yellow ulceration noted of dorsal R small toe extending proximally from base on nailbed. pain with palpation. surrounding erythema, warmth, and edema or the toe that does not extend to the foot. no drainage or bleeding noted. no fluctuance Vital Signs: Initial Vital Signs Temp 98.2 F 10/23/19 18:23 Pulse 72 10/23/19 18:23 Resp 18 10/23/19 18:23 BP 116/74 10/23/19 18:23 Pulse Ox 100 10/23/19 18:23 Diagnostics - Radiology R small toe Radiology Interpretation Completed By: ED Physician Summary of Radiographic Findings: no acute process Course/Dx - Course Course Of Treatment: Patient presenting with nonhealing ulcer of dorsal R small toe x1 month. Initialy read of radiograph negative. Informed patient that final report with be obtained in the morning and he will be notified with any abnormalities. I treated the patient with doxycycline x10 days for infection. Educated on wound care and stressed importance of follow up as soon as possible with the wound clinic. Discussed consequences of letting ulcer go untreated, including loss of toe or even the foot. Patient VS normal in no pain distress. Patient voiced understanding and agreed with plan. Discussed patient with Dr. Beltran who also agreed with treatment plan. - Differential Diagnoses - Skin Complaint Differential Diagnoses: Cellulitis - Diagnoses Provider Diagnosis: Skin ulcer of small toe of right foot, Cellulitis Discharge ED - Sign-Out/Discharge Documenting (check all that apply): Patient Departure All imaging exams completed and their final reports reviewed: No - Discharge Plan Condition: Stable Disposition: HOME Prescriptions: DOXYcycline CAP(*) [DOXYcycline 100MG CAP(*)] 100 mg PO BID #19 cap Patient Education Materials: Wound Infection (ED), Chronic Wound Care (ED) Referrals: Lenny Beckett MD [Primary Care Provider] - Additional Instructions: Take the antibiotic as prescribed for your wound infection. You received the first dose tonight. Keep the area clean and dry. Change dressing daily. Stop applying peroxide and neosporin. Follow up with the wound clinic listed below SOON POSSIBLE for further evaluation and treatment of your wound. It is very important that you receive follow up to prevent further infection and loss of the toe. Go to the emergency room if you experience any new or worsening symptoms, including increasing pain, increasing redness, fever, or nausea and vomiting. [facility] [address] [place] [address] - Billing Disposition and Condition Condition: STABLE Disposition: Home
[2019-10-23] MEDS ORDERED: DOXYcycline CAP(*) 100 MG PO ONE (20:52)
== END 2019-10-23 21:07 | disposition home or self-care (01) ==
LOC: UCCORT 17:37
DX: L97.519 Non-pressure chronic ulcer of other part of right foot with unspecified severity (principal); L03.031 Cellulitis of right toe; Z98.1 Arthrodesis status; F17.210 Nicotine dependence, cigarettes, uncomplicated; Z88.5 Allergy status to narcotic agent; Z91.09 Other allergy status, other than to drugs and biological substances
CPT/HCPCS: 99213; A9270-GY; G0463

== ENCOUNTER 2019-11-18 10:17 | Emergency (ER) | payer MEDICARE ==
[2019-11-18 10:32] VITALS: BP 126/72
--- NOTE | 2019-11-18 10:33 | UC ---
Lower Extremity/Ankle HPI - HPI Summary HPI Summary: 64yo male presenting with sore on left toe x1.5 weeks that has gradually been worsening. States when he took his boot off today, the skin from the toe " peeled off." Patient notes pain with palpation and ambulating. Denies drainage or bleeding. Denies swelling and bruising. Denies known trauma or injury, but thinks he "may have hit his foot on the wooden floor." Denies n/v. Denies fever and chills. 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 Denies history of diabetes - History of Current Complaint Stated Complaint: LT FOOT COMPLAINT Hx Obtained From: Patient Pain Intensity: 9 Pain Scale Used: 0-10 Numeric - Allergies/Home Medications Allergies/Adverse Reactions: Allergies Allergy/AdvReac Type Severity Reaction Status Date / Time mold Allergy Intermediate Difficulty Verified 11/18/19 10:28 Breathing/Wheezing codeine AdvReac Severe ADDICTION Verified 11/18/19 10:28 ISSUES IN PAST DUST MITES Allergy Intermediate Difficulty Uncoded 11/18/19 10:28 Breathing/Wheezing PMH/Surg Hx/FS Hx/Imm Hx Other History Of: Negative For: HIV, Hepatitis B, Hepatitis C, Anticoagulant Therapy - Surgical History Surgical History: Yes Surgery Procedure, Year, and Place: L3, L4, L5 FUSION WITH INSTRUMENTATION (RODS /SCREWS) 2006 [facility]. LEFT MIDDLE FINGER RECONSTRUCTION 2007 [facility] [place]. 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 Negative: Fever, Chills Skin: Positive: Other - sore on left small toe. Negative: Bruising Respiratory: Positive: Negative Cardiovascular: Positive: Negative Gastrointestinal: Positive: Negative. Negative: Vomiting, Nausea Neurovascular: Positive: Negative Musculoskeletal: Positive: Arthralgia - left small toe. Negative: Decreased ROM , Edema Neurological/Mental Status: Positive: Numbness - b/l feet Physical Exam - Summary Physical Exam Summary: Vital Signs Reviewed: Yes A+Ox3, no distress Eyes: Conjunctiva Clear ENT: Hearing grossly normal neck: supple Respiratory: Positive: No respiratory distress, No accessory muscle use Cardiovascular: skin color reflect adequate perfusion Musculoskeletal Exam: KIM x 4 without difficulty Neurological: Positive: Alert, ambulatory without difficulty, sensation grossly intact Psychological: Positive: age appropriate behavior Skin: Positive: ~1.5cm round pale yellow ulceration noted on dorsal aspect of left small toe. toe pale in color in comparison to other toes. cap refill <2 sec. nonbleeding, nondraining, no surrounding erythema or edema, no red streaking. two similar ~5mm ulcerations also noted on plantar surface of left fourth toe. sensation grossly intact, pain with palpation of toes Vital Signs: Initial Vital Signs Temp 98.2 F 11/18/19 10:24 Pulse 75 11/18/19 10:24 Resp 16 11/18/19 10:24 BP 126/72 11/18/19 10:24 Pulse Ox 100 11/18/19 10:24 Diagnostics - Radiology left foot Radiology Interpretation Completed By: Radiologist Summary of Radiographic Findings: FINDINGS: The soft tissues are poorly evaluated. The bone mineralization is within normal limits. No fracture is identified. Anatomic alignment is maintained. There is mild first MTP osteophyte arthropathy. IMPRESSION: NO FRACTURE OR DEVIN EROSIVE CHANGE IS IDENTIFIED. (RADIOGRAPH IS INSENSITIVE FOR ACUTE OSTEOMYELITIS). Lower Extremity Course/Dx - Course Course Of Treatment: Patient presenting with multiple nonhealing toe ulcers of left foot x1.5 weeks. Radiographs negative. No indication of active infection on exam. Wounds were cleansed and dressings were applied. I treated patient with doxycycline to prevent infection. Educated on wound care and stressed importance of follow up with wound care clinic. Discussed the consequences of not following up and receiving further treatment of wounds, including infection and loss of toes and even the foot. Instructed to go to the emergency with any new or worsening symptoms. Patient voiced understanding and agreed with the treatment plan. - Differential Dx/Diagnosis Provider Diagnosis: Skin ulcer of small toe of left foot, Skin ulcer of fourth toe of left foot Discharge ED - Sign-Out/Discharge Documenting (check all that apply): Patient Departure All imaging exams completed and their final reports reviewed: Yes - Discharge Plan Condition: Stable Disposition: HOME Prescriptions: DOXYcycline CAP(*) [DOXYcycline 100MG CAP(*)] 100 mg PO BID #20 cap Patient Education Materials: Acute Wound Care (ED), Acute Wounds (ED) Referrals: Lenny Beckett MD [Primary Care Provider] - Additional Instructions: Start taking the antibiotic doxycycline today as prescribed to help prevent infection of your wounds. Keep the areas as clean and dry as possible. Change dressing daily or as needed. Follow up with the wound care center listed below SOON POSSIBLE for further evaluation and treatment of wounds. It is important that you follow up with wound care to prevent further infection and loss of the toe or foot. Go to the nearest emergency room if you experience any new or worsening symptoms , including increasing pain, increasing redness, swelling, or warmth, fever, or nausea and vomiting. [facility] [address] [place], [place] [id number] - Billing Disposition and Condition Condition: STABLE Disposition: Home
== END 2019-11-18 12:18 | disposition home or self-care (01) ==
LOC: UCCORT 10:17
DX: L98.499 Non-pressure chronic ulcer of skin of other sites with unspecified severity (principal); F17.210 Nicotine dependence, cigarettes, uncomplicated; Z88.5 Allergy status to narcotic agent; Z91.09 Other allergy status, other than to drugs and biological substances
CPT/HCPCS: 99212; G0463